=== PATIENT | male | born 1945 | race Caucasian/White ===

== ENCOUNTER 2017-09-06 20:25 | Emergency (ER) | payer MEDICARE, OTHER ==
--- NOTE | 2017-09-06 20:33 | PDOC ---
Rapid Medical Evaluation Time Seen by Provider: 09/06/17 20:31 Medical Evaluation: Allergies Allergy/AdvReac Type Severity Reaction Status Date / Time Penicillins Allergy Unknown Verified 11/20/15 16:55 09/06/17 20:31 I have performed a brief in-person evaluation of this patient. The patient presents with a chief complaint of: urinary retention, last urinated at 1 pm, hx prostate ca I have ordered the following: hernandez, UA, UCx, CBC, CMP The patient will proceed to the ED for further evaluation.
[2017-09-06 20:34] VITALS: PULSE 100; TEMP 97.6; BMI 25.3
[2017-09-06 21:25] LABS: BASOPHIL 0.3 % (0-2.0); EOSINOPHIL 1.9 % (0-4.5); MCH 28.7 pg (25.7-33.7); MCHC 33.2 g/dl (32.0-35.9); MEAN CELL VOLUME 86.6 fl (80-96); NEUTROPHILS 76.8 % (42.8-82.8); PLATELET COUNT 296 K/MM3 (134-434); RDW 14.8 % (11.9-15.9); WHITE BLOOD COUNT 16.2 K/mm3 (4.0-10.0)
--- NOTE | 2017-09-06 21:40 | PDOC ---
History of Present Illness - General History Source: Patient Exam Limitations: No Limitations - History of Present Illness Initial Comments: 09/06/17 22:31 The patient is a 71 year old male, with a significant past medical history of Prostate CA, HTN, HLD who presents to the emergency department with urinary retention since 1pm today. Patient has not been able to void urine and complained of suprapubic pain. Upon evaluation, patient has voided urine through hernandez catheter and is resting comfortably. He denies chest pain, headache or dizziness. He denies fever, chills, nausea, vomit, diarrhea or constipation. He denies dysuria, frequency, urgency or hematuria. Patient denies sick contacts or recent travel. Allergies: NKA Past surgical history: None Social history:None PCP: Dr. Huang <Ynes Rutledge - Last Filed: 09/06/17 22:31> <José Antonio Simon - Last Filed: 09/06/17 23:16> - General Chief Complaint: Urinary Problem Stated Complaint: TROUBLE URINATING Time Seen by Provider: 09/06/17 20:31 Past History <Ynes Rutledge - Last Filed: 09/06/17 22:31> - Past Medical History Anemia: No Asthma: No Cancer: Yes (prostate) Cardiac Disorders: No CVA: No COPD: No CHF: No DVT: No Dementia: No Diabetes: No GI Disorders: No Disorders: No HTN: Yes Hypercholesterolemia: Yes Liver Disease: No Seizures: No Thyroid Disease: No - Surgical History Abdominal Surgery: No Appendectomy: No Cardiac Surgery: No Cholecystectomy: No Lung Surgery: No Neurologic Surgery: No Orthopedic Surgery: No - Suicide/Smoking/Psychosocial Hx Smoking Status: No Smoking History: Never smoked Have you smoked in the past 12 months: No Number of Cigarettes Smoked Daily: 0 Information on smoking cessation initiated: No Hx Alcohol Use: No Drug/Substance Use Hx: No Substance Use Type: None Hx Substance Use Treatment: No <José Antonio Simon - Last Filed: 09/06/17 23:16> - Past Medical History Allergies/Adverse Reactions: Allergies Allergy/AdvReac Type Severity Reaction Status Date / Time Penicillins Allergy Unknown Verified 11/20/15 16:55 Home Medications: Ambulatory Orders No Home Medications 0 dose .ROUTE UTDICT 10/05/12 Sulfamethoxazole/Trimethoprim [Bactrim Ds -] 1 tab PO BID #10 tablet 09/06/17 Abd/GI Specific PMHX - Complaint Specific PMHX GERD: No GI Ulcer Disease: No <José Antonio Simon - Last Filed: 09/06/17 23:16> Review of Systems - Review of Systems Able to Perform ROS?: Yes Comments:: 09/06/17 22:31 CONSTITUTIONAL: No fever, no chills, no fatigue EYES: No visual changes ENT: No ear pain, no sore throat CARDIOVASCULAR: No chest pain, no palpitations RESPIRATORY: No cough, no SOB GI: No abdominal pain, no nausea, no vomiting, no constipation, no diarrhea GENITOURINARY: No dysuria, no frequency, no hematuria. +urinary retention. MUSKULOSKELETAL: No back pain, no joint pain, no myalgias SKIN: No rash NEURO: No headache <Ynes Rutledge - Last Filed: 09/06/17 22:31> *Physical Exam - Vital Signs Last Vital Signs Temp Pulse Resp BP Pulse Ox 97.6 F 100 H 24 193/92 97 09/06/17 20:31 09/06/17 20:31 09/06/17 20:31 09/06/17 20:31 09/06/17 20:31 - Physical Exam Comments: 09/06/17 22:31 CONSTITUTIONAL: Well-appearing; well-nourished; in no apparent distress HEAD: Normocephalic; atraumatic EYES: PERRL; EOM intact ENMT: External appears normal; normal oropharynx NECK: Supple; nontender; no cervical lymphadenopathy CARD: Normal S1, S2; no murmurs, rubs, or gallops RESP: Normal chest excursion with respiration; breath sounds clear and equal bilaterally; no wheezes, rhonchi, or rales ABD: Soft, non-distended; non-tender; no palpable organomegaly, no palpable hernias EXT: Normal ROM in all four extremities; non-tender to palpation; distal pulses intact SKIN: Warm, dry, no rash NEURO: No focal neurological deficiencies. <Ynes Rutledge - Last Filed: 09/06/17 22:31> - Vital Signs Last Vital Signs Temp Pulse Resp BP Pulse Ox 97.6 F 100 H 24 193/92 97 09/06/17 20:31 09/06/17 20:31 09/06/17 20:31 09/06/17 20:31 09/06/17 20:31 <José Antonio Simon - Last Filed: 09/06/17 23:16> ED Treatment Course - LABORATORY CBC & Chemistry Diagram: 09/06/17 21:00 09/06/17 21:00 - ADDITIONAL ORDERS Additional order review: 09/06/17 21:00 RBC 4.91 D MCV 86.6 MCHC 33.2 RDW 14.8 MPV 9.0 Neutrophils % 76.8 Lymphocytes % 15.2 Monocytes % 5.8 Eosinophils % 1.9 Basophils % 0.3 <Ynes Rutledge - Last Filed: 09/06/17 22:31> - LABORATORY CBC & Chemistry Diagram: 09/06/17 21:00 09/06/17 21:00 - ADDITIONAL ORDERS Additional order review: 09/06/17 21:00 RBC 4.91 D MCV 86.6 MCHC 33.2 RDW 14.8 MPV 9.0 Neutrophils % 76.8 Lymphocytes % 15.2 Monocytes % 5.8 Eosinophils % 1.9 Basophils % 0.3 <José Antonio Simon - Last Filed: 09/06/17 23:16> Medical Decision Making - Medical Decision Making 09/06/17 21:52 Dr. Casper Ruano paged via phone answering service. Awaiting call back. 09/06/17 22:00 Flex Ruano returned the page and the patients case was discussed. 09/06/17 22:20 Patient voided urine spontaneously. <Ynes Rutledge - Last Filed: 09/06/17 22:31> - Medical Decision Making 09/06/17 23:12 71-year-old male with multiple comorbidities, history prostate CA, history urinary incontinence, status post male sling placement by urology presents to the ER with suprapubic abdominal discomfort and urinary retention for a period of 6-7 hours prior to arrival. Upon arrival, Hernandez catheter placement was attempted, small amount urine was obtained with patient voiding spontaneously thereafter with complete resolution of his discomfort. Serial abdominal exams reveal no evidence of bladder distention or CVA tenderness. CBC reveals leukocytosis of 16. Patient is afebrile. I discussed the case with Dr. Nick tran of urology. Will administer Bactrim and will discharge with by mouth Bactrim with prompt follow-up in the a.m. <José Antonio Simon - Last Filed: 09/06/17 23:16> *DC/Admit/Observation/Transfer - Attestations Scribe Attestion: Documentation prepared by Ynes Rutledge, acting as medical accountant for José Antonio Simon MD 09/06/17 22:26 <Ynes Rutledge - Last Filed: 09/06/17 22:31> - Attestations Physician Attestion: 09/06/17 23:12 The documentation was prepared by the scribe under my direct supervision. I have reviewed the documentation which correctly represents the findings, medical decision-making and critical action taken by me. <José Antonio Simon - Last Filed: 09/06/17 23:16> Diagnosis at time of Disposition: Urinary retention - Discharge Dispostion Disposition: HOME Condition at time of disposition: Stable - Referrals Referrals: Mel Huang MD [Primary Care Provider] - Casper Ruano MD [Staff Physician] - - Patient Instructions Printed Discharge Instructions: DI for Urinary Retention in Men
[2017-09-06 21:53] LABS: ALBUMIN 4.2 g/dl (3.4-5.0); ANION GAP 8 (8-16); BILIRUBIN,TOTAL 0.3 mg/dL (0.2-1.0); CALCIUM 8.3 mg/dL (8.5-10.1); CO2 25 mmol/L (21-32); CREATININE 0.8 mg/dL (0.7-1.3); GLUCOSE,RANDOM 129 mg/dL (74-106); MAGNESIUM 2.1 mg/dL (1.8-2.4); SGOT/AST 11 U/L (15-37); SGPT/ALT 19 U/L (12-78); TOT PROT 7.3 g/dl (6.4-8.2)
[2017-09-06 21:54] LABS: ALK PHOS 92 U/L (45-117)
[2017-09-06 22:00] LABS: CPK 117 IU/L (39-308); TROPONIN I < 0.02 ng/ml (0.00-0.05)
[2017-09-06] MEDS ORDERED: SULFAMETHOXAZOLE/TRIMETHOPRIM 800MG/160MG D.S. TABLET PO ONE (22:20)
[2017-09-06] MEDS ORDERED: SULFAMETHOXAZOLE/TRIMETHOPRIM 800MG/160MG D.S. TABLET ONE (22:29)
[2017-09-06 23:44] VITALS: BP 134/54
--- NOTE | 2017-09-07 11:09 | EKG ---
Test Reason : Blood Pressure : / mmHG Vent. Rate : 094 BPM Atrial Rate : 094 BPM P-R Int : 132 ms QRS Dur : 082 ms QT Int : 338 ms P-R-T Axes : 072 059 062 degrees QTc Int : 422 ms NORMAL SINUS RHYTHM NORMAL ECG WHEN COMPARED WITH ECG OF 18-MAY-2013 18:24, ST NO LONGER ELEVATED IN INFERIOR LEADS Confirmed by JP ADAME MD ([id number]) on 09/07/2017 11:09:01 AM Referred By: Confirmed By:JP ADAME MD
== END 2017-09-06 23:30 | disposition home or self-care (01) ==
LOC: JER 20:25
PROC: 0T9B70Z Drainage of Bladder with Drainage Device, Via Natural or Artificial Opening (ICD-10-PCS; principal; 2017-09-06)
DX: R33.9 Retention of urine, unspecified (principal); Z85.46 Personal history of malignant neoplasm of prostate; R32 Unspecified urinary incontinence
CPT/HCPCS: 36415; 51702; 80053; 82550; 83735; 84484; 85025; 87086; 93005; 93010; 99281-25

== ENCOUNTER 2017-09-07 14:27 | Inpatient (IN) | payer MEDICARE ==
--- NOTE | 2017-09-07 14:30 | PDOC ---
Rapid Medical Evaluation Time Seen by Provider: 09/07/17 14:29 Medical Evaluation: Allergies Allergy/AdvReac Type Severity Reaction Status Date / Time No Known Allergies Allergy Verified 04/03/17 01:49 09/07/17 14:29 I have performed a brief in-person evaluation of this patient. The patient presents with a chief complaint of: Urinary retention Pertinent physical exam findings: PULM: CTAB I have ordered the following: CBCD, BMP, T&S, PT/INR, UA, urine cx The patient will proceed to the ED for further evaluation. 09/07/17 14:31 Discharge Disposition - Diagnosis Urinary retention - Referrals Referrals: Denton Ruano MD [Primary Care Provider] - - Patient Instructions - Post Discharge Activity
[2017-09-07 15:30] LABS: BASOPHIL 0.6 % (0-2.0); EOSINOPHIL 2.9 % (0-4.5); MCHC 33.4 g/dl (32.0-35.9); MEAN CELL VOLUME 86.9 fl (80-96); MEAN PLT VOLUME 9.1 fl (7.5-11.1); NEUTROPHILS 57.6 % (42.8-82.8); PLATELET COUNT 260 K/MM3 (134-434); RDW 14.8 % (11.9-15.9)
[2017-09-07 15:33] LABS: ANION GAP 7 (8-16); CALCIUM 8.5 mg/dL (8.5-10.1); CO2 28 mmol/L (21-32); CREATININE 0.7 mg/dL (0.7-1.3); GLUCOSE,RANDOM 98 mg/dL (74-106)
[2017-09-07 15:56] LABS: INR 1.08 (0.82-1.09); PROTHROMBIN TIME (PATIENT) 12.2 SEC (9.98-11.88)
[2017-09-07 16:01] LABS: URINE APPEARANCE CLOUDY; URINE BILIRUBIN NEGATIVE (NEGATIVE); URINE BLOOD 3+ (NEGATIVE); URINE COLOR AMBER; URINE GLUCOSE (UA) NEGATIVE (NEGATIVE); URINE KETONE TRACE (NEGATIVE); URINE NITRITE NEGATIVE (NEGATIVE); URINE UROBILINOGEN NEGATIVE mg/dL (0.2-1.0)
--- NOTE | 2017-09-07 16:03 | PDOC ---
History of Present Illness - General Chief Complaint: Urinary Problem Stated Complaint: SENT BY PCP Time Seen by Provider: 09/07/17 14:29 History Source: Patient Exam Limitations: No Limitations - History of Present Illness Initial Comments: This is a 71 YOM with h/o prostate cancer with seed placement and radiation in 2003 with subsequent struggles with urinary retention and urethral obstruction and multiple TURP procedures. He presents from [facility] clinic where they could not place a Bautista catheter. He was also seen yesterday night here in the ED for urinary retention and lower abdominal pain, and at that time they were able to place a straight cath. He has had no burning, blood, or strange smells on urination, and no fever, chills, nausea, vomiting, diarrhea, SOB, chest pain , back pain, headache, dizziness, or other symptoms lately. His PMD is Thien Huang. Past History - Past Medical History Allergies/Adverse Reactions: Allergies Allergy/AdvReac Type Severity Reaction Status Date / Time No Known Allergies Allergy Verified 09/07/17 14:29 Home Medications: Ambulatory Orders Ciprofloxacin [Cipro (Restricted To Id)] 500 mg PO DAILY #20 tablet 04/03/17 Mirabegron [Myrbetriq] 50 mg PO DAILY 04/03/17 Anemia: No Asthma: No Cancer: Yes (PROSTATE) Cardiac Disorders: No CVA: No COPD: No CHF: No Dementia: No Diabetes: No GI Disorders: No Disorders: Yes (prostate) HTN: No Hypercholesterolemia: Yes Liver Disease: No Seizures: No Thyroid Disease: No - Suicide/Smoking/Psychosocial Hx Smoking Status: No Smoking History: Never smoked Have you smoked in the past 12 months: No Number of Cigarettes Smoked Daily: 0 Hx Alcohol Use: No Drug/Substance Use Hx: No Substance Use Type: None Hx Substance Use Treatment: No Review of Systems - Review of Systems Constitutional: No: Chills, Fever, Unexplained wgt Loss HEENTM: No: Nose Congestion, Throat Pain Respiratory: No: Cough, Shortness of Breath Cardiac (ROS): No: Chest Pain, Palpitations ABD/GI: No: Constipated, Diarrhea, Nausea, Vomiting : Yes: Other (urinary retention). No: Burning, Dysuria Musculoskeletal: No: Back Pain, Neck Pain Integumentary: No: Bruising, Rash Neurological: No: Headache, Numbness, Tingling, Weakness, Dizziness Endocrine: No: Unexplained Weight Gain, Unexplained Weight Loss *Physical Exam - Vital Signs Last Vital Signs Temp Pulse Resp BP Pulse Ox 97.9 F 71 18 147/75 98 09/07/17 14:29 09/07/17 14:29 09/07/17 14:29 09/07/17 14:29 09/07/17 14:29 - Physical Exam General Appearance: Yes: Nourished, Appropriately Dressed, Other (well appearing older male who is conversive and answering questions appropriately and accompanied by his partner at bedside). No: Apparent Distress HEENT: positive: EOMI, Normal Voice, Hearing Grossly Normal. negative: Scleral Icterus (R), Scleral Icterus (L), Nasal Congestion Neck: positive: Trachea midline, Supple. negative: Tender, Rigid Respiratory/Chest: positive: Lungs Clear, Normal Breath Sounds. negative: Respiratory Distress, Labored Respiration, Crackles, Rhonchi, Stridor, Wheezing Cardiovascular: positive: Regular Rhythm, Regular Rate. negative: Murmur Gastrointestinal/Abdominal: positive: Normal Bowel Sounds, Soft. negative: Tender, Organomegaly, Pulsatile Mass, Guarding Musculoskeletal: positive: Normal Inspection. negative: Decreased Range of Motion, Vertebral Tenderness Extremity: positive: Normal Capillary Refill, Normal Inspection, Normal Range of Motion. negative: Tender, Cyanosis Integumentary: positive: Normal Color, Dry, Warm. 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, Fully Oriented, Alert, Normal Mood/ Affect, Normal Response, Motor Strength 5/5 ED Treatment Course - LABORATORY CBC & Chemistry Diagram: 09/07/17 14:50 09/07/17 14:55 - ADDITIONAL ORDERS Additional order review: Laboratory Results 09/07/17 14:55 Sodium 141 Potassium 4.8 D Chloride 106 Carbon Dioxide 28 Anion Gap 7 L BUN 14 Creatinine 0.7 D Random Glucose 98 D Calcium 8.5 09/07/17 14:50 RBC 4.86 MCV 86.9 MCHC 33.4 RDW 14.8 MPV 9.1 Neutrophils % 57.6 D Lymphocytes % 30.6 D Monocytes % 8.3 D Eosinophils % 2.9 D Basophils % 0.6 Medical Decision Making - Medical Decision Making Ordered is CXR portable. 09/07/17 15:[address] Huang as PMD, and Dr. Casper Ruano for urology. Spoke with Dr. Valenzuela who is wagon driver for Dr. Huang and who kindly will admit the patient. The admission is ordered for inpatient med/surg, dx urinary retention, with Casper Ruano consulting. *DC/Admit/Observation/Transfer Diagnosis at time of Disposition: Urinary retention - Discharge Dispostion Disposition: HOME Condition at time of disposition: Guarded Admit: Yes - Referrals Referrals: Mel Huang MD [Staff Physician] - - Patient Instructions - Post Discharge Activity
[2017-09-07 16:13] LABS: URINE PROTEIN 1+ (NEGATIVE)
[2017-09-07 16:19] LABS: URINE BACTERIA FEW /hpf (NONE SEEN); URINE RBC 4962; URINE WBC 140
[2017-09-07] MEDS ORDERED: ACETAMINOPHEN 325 MG TABLET (FP) PO PRN (17:10)
--- NOTE | 2017-09-07 17:22 | PDOC ---
Attending Attestation - Resident Resident Name: ChildressMakenzie - ED Attending Attestation I have performed the following: I have examined & evaluated the patient, The case was reviewed & discussed with the resident, I agree w/resident's findings & plan, Exceptions are as noted - HPI HPI: 09/07/17 17:20 71 year old male with past medical history of prostate ca with radiation seeds sent in by Dr. Casper Ruano for admission for the OR tomorrow. The patient was recently here in the ER for urinary retention. The patient had a cath performed and joaquín out approx 600cc. Today, at the urologist's office, noted that he was undergoing cystoscopy but unable to successfully dilate. Given the circumstances , the patient was sent to the ER for admission. No fevers, chills, or abdominal pain. - Physicial Exam PE: 09/07/17 17:21 GENERAL: NAD, AAOx3 ABD: soft, nd, nt - Medical Decision Making 09/07/17 17:21 Vital Signs Temp Pulse Resp BP Pulse Ox 97.9 F 71 18 147/75 98 09/07/17 14:29 09/07/17 14:29 09/07/17 14:29 09/07/17 14:29 09/07/17 14:29 Will admit the patient for cystoscopy under general anesthesia. Pt's PMD is Mel Huang, urologist is DR. Flex Ruano. Pre-op labs NPO after midnight ECG chest xray Admit
[2017-09-07] MEDS: D5-1/2NS+20 MEQ KCL - 20 MEQ/1,000 ML INFUS.BAG IV SCH (17:51)
[2017-09-07] MEDS: cefTRIAXone 1 GM/50 ML BAG (PRE-DOCKED) IVPB SCH (18:06)
[2017-09-07 18:47] LABS: URINE LEUK ESTERASE TRACE (NEGATIVE)
[2017-09-07 19:45] VITALS: BMI 24.3
[2017-09-07] MEDS: HEPARIN NA (PORCINE) 5,000 UNITS/ML 1ML VIAL SQ SCH (21:21)
[2017-09-08] MEDS: D5-1/2NS+20 MEQ KCL - 20 MEQ/1,000 ML INFUS.BAG IV SCH ×2 (05:53→22:17)
[2017-09-08 08:00] LABS: BASOPHIL 0.9 % (0-2.0); EOSINOPHIL 3.2 % (0-4.5); MCH 28.4 pg (25.7-33.7); MCHC 32.2 g/dl (32.0-35.9); MEAN CELL VOLUME 88.4 fl (80-96); NEUTROPHILS 55.1 % (42.8-82.8); PLATELET COUNT 225 K/MM3 (134-434); WHITE BLOOD COUNT 6.9 K/mm3 (4.0-10.0)
[2017-09-08 08:24] LABS: ALBUMIN 3.4 g/dl (3.4-5.0); ALK PHOS 78 U/L (45-117); ANION GAP 9 (8-16); BILIRUBIN,TOTAL 0.6 mg/dL (0.2-1.0); CALCIUM 8.6 mg/dL (8.5-10.1); CO2 24 mmol/L (21-32); CREATININE 0.8 mg/dL (0.7-1.3); GLUCOSE,RANDOM 95 mg/dL (74-106); SGOT/AST 14 U/L (15-37); SGPT/ALT 18 U/L (12-78); TOT PROT 6.3 g/dl (6.4-8.2)
[2017-09-08] MEDS: HEPARIN NA (PORCINE) 5,000 UNITS/ML 1ML VIAL SQ SCH (09:59)
[2017-09-08] MEDS ORDERED: PANTOPRAZOLE 40 MG TABLET (FP) PO SCH (10:00)
--- NOTE | 2017-09-08 10:44 | CONS ---
DATE OF CONSULTATION: DATE OF DICTATION: 09/08/2017 HISTORY OF PRESENT ILLNESS: Patient is a 71-year-old male admitted via the emergency room in acute urinary retention. Patient is well known to me. Was seen in my office earlier. Attempts at cystoscopy were unsuccessful due to bladder neck contraction. The patient is status post radiation seed implantation for prostate cancer 8 years earlier. The patient was found to have a distended bladder with dribbling. His temperature was 99.7, blood pressure 147/ . Laboratory data on admission revealed a white count of 9000, hemoglobin 14.1, hematocrit 42.3, his platelets were 260. PT was 12.2 and INR 1.08. BUN was 14 and creatinine 0.7. Random glucose is 98. A urinalysis revealed 3+ blood, negative nitrite. A chest x-ray on the patient revealed the right lower lateral chest wall and lateral aspect of the right lateral costovertebral angle were not visualized. The rest of the exam was normal. 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 PLAN: Cystoscopy and vaporization of bladder neck. This was explained to patient and he agrees. Delonte [id number]
[2017-09-08] MEDS: cefTRIAXone 1 GM/50 ML BAG (PRE-DOCKED) IVPB SCH (10:47)
[2017-09-08] MEDS ORDERED: CEFTRIAXONE 1 GM/50 ML PREMIX IVPB SCH (11:00)
--- NOTE | 2017-09-08 14:05 | CON.CARD ---
Consult Consult Specialty:: Cardiology Reason for Consultation:: Preoperative evaluation - History of Present Illness Chief Complaint: Urinary retention History of Present Illness: This is a 71 year old male with a PMH of prostate CA. He is S/P seed placement and radiation He has has multiple prostate procedures in the past. He presents now with urinary retention and inability to pass a Bautista catheter. He has no significant cardiac history and has no cardiac symptoms. He specifically denies chest pain, palpitations, and SOB. EKG NSR with no acute changes CXR unremarkable - Alcohol/Substance Use Hx Alcohol Use: No - Smoking History Smoking history: Never smoked Have you smoked in the past 12 months: No Aproximately how many cigarettes per day: 0 Home Medications - Allergies Allergies/Adverse Reactions: Allergies Allergy/AdvReac Type Severity Reaction Status Date / Time Penicillins Allergy Unknown Verified 11/20/15 16:55 - Home Medications Home Medications: Ambulatory Orders No Home Medications 0 dose .ROUTE UTDICT 10/05/12 Sulfamethoxazole/Trimethoprim [Bactrim Ds -] 1 tab PO BID #10 tablet 09/06/17 Atorvastatin Ca [Lipitor] 20 mg NR DAILY 09/07/17 Omeprazole 20 mg PO DAILY 09/07/17 Review of Systems Unable to obtain ROS, reason: As per HPI Vital Signs: Vital Signs Temperature 98.0 F 09/08/17 09:00 Pulse Rate 69 09/08/17 09:00 Respiratory Rate 16 09/08/17 09:00 Blood Pressure 139/64 09/08/17 09:00 O2 Sat by Pulse Oximetry (%) 98 09/08/17 10:00 Constitutional: Yes: No Distress Neck: Yes: WNL Respiratory: Yes: CTA Bilaterally Gastrointestinal: Yes: Soft Cardiovascular: Yes: Regular Rate and Rhythm (NL S1S2, no MRHG.) Extremities: Yes: WNL Edema: No Neurological: Yes: Alert, Oriented (Grossly nonfocal) - Other Data Labs, Other Data: CBC, BMP 09/08/17 07:20 09/08/17 07:20 INR, PTT INR 1.08 (0.82-1.09) 09/07/17 14:50 Assessment/Plan Preoperative Evaluation Based on the EKG, CXR, and my clinical evaluation, there are no cardiac contraindications to surgery. There is no need for preop cardiac testing or preop beta blockers for this patient.
--- NOTE | 2017-09-08 14:37 | HP ---
Admitting History and Physical - Primary Care Physician PCP: Mel Huang I - Admission History of Present Illness: This is a 71 yr old Male with h/o prostate cancer with seed placement and radiation in 2003 with subsequent struggles with urinary retention and urethral obstruction and multiple TURP procedures. He presents from [facility] clinic where they could not place a Bautista catheter. He was also seen yesterday night here in the ED for urinary retention and lower abdominal pain, and at that time they were able to place a straight cath. He has had no burning, blood , or strange smells on urination, and no fever, chills, nausea, vomiting, diarrhea, SOB, chest pain, back pain, headache, dizziness, or other symptoms lately. His PMD is Thien Huang. History Source: Patient, Medical Record - Past Medical History Heme/Onc: Yes: Other (prostate cancer) - Smoking History Smoking history: Never smoked Have you smoked in the past 12 months: No Aproximately how many cigarettes per day: 0 - Alcohol/Substance Use Hx Alcohol Use: No Home Medications - Allergies Allergies/Adverse Reactions: Allergies Allergy/AdvReac Type Severity Reaction Status Date / Time Penicillins Allergy Unknown Verified 11/20/15 16:55 - Home Medications Home Medications: Ambulatory Orders No Home Medications 0 dose .ROUTE UTDICT 10/05/12 Sulfamethoxazole/Trimethoprim [Bactrim Ds -] 1 tab PO BID #10 tablet 09/06/17 Atorvastatin Ca [Lipitor] 20 mg NR DAILY 09/07/17 Omeprazole 20 mg PO DAILY 09/07/17 Review of Systems - Review of Systems Cardiovascular: reports: No Symptoms Respiratory: reports: No Symptoms Gastrointestinal: reports: No Symptoms Physical Examination Vital Signs: Vital Signs Temperature 98.0 F 09/08/17 09:00 Pulse Rate 69 09/08/17 09:00 Respiratory Rate 16 09/08/17 09:00 Blood Pressure 139/64 09/08/17 09:00 O2 Sat by Pulse Oximetry (%) 98 09/08/17 10:00 Constitutional: Yes: Calm, Thin Neck: Yes: Trachea Midline Cardiovascular: Yes: Regular Rate and Rhythm, S1, S2 Respiratory: Yes: CTA Bilaterally Gastrointestinal: Yes: Normal Bowel Sounds, Soft Edema: No Neurological: Yes: Alert, Oriented Labs: CBC, BMP 09/08/17 07:20 09/08/17 07:20 Problem List - Problems (1) Urinary retention Assessment/Plan: NPO and iv fluids cardio saw patient h/o prostate cancer today to get cystoscopy and vaporisation of bladder neck GI and DVT Ppx Code(s): R33.9 - RETENTION OF URINE, UNSPECIFIED
[2017-09-08] MEDS ORDERED: PROPOFOL 20 ML ONE (20:08)
[2017-09-08] MEDS ORDERED: MIDAZOLAM HCL 2 MG/2 ML SINGLE DOSE VIAL ONE (20:08)
[2017-09-08] MEDS ORDERED: ceFAZolin SODIUM 1 GM VIAL IVPB ONE (20:18)
[2017-09-08] MEDS ORDERED: ceFAZolin SODIUM 1 GM VIAL ONE (20:22)
[2017-09-08] MEDS ORDERED: ONDANSETRON 4 MG/2 ML VIAL IVPUSH PRN (20:48)
[2017-09-08] MEDS ORDERED: LACTATED RINGERS SOLUTION 1,000 ML IV SCH (21:00)
[2017-09-08] MEDS ORDERED: ACETAMINOPHEN 325 MG TABLET (FP) PO PRN (21:10)
[2017-09-09 07:03] LABS: BASOPHIL 0.4 % (0-2.0); EOSINOPHIL 2.4 % (0-4.5); MCH 28.8 pg (25.7-33.7); MCHC 32.9 g/dl (32.0-35.9); MEAN CELL VOLUME 87.6 fl (80-96); MEAN PLT VOLUME 8.8 fl (7.5-11.1); NEUTROPHILS 74.5 % (42.8-82.8); PLATELET COUNT 235 K/MM3 (134-434); RDW 14.6 % (11.9-15.9); WHITE BLOOD COUNT 9.6 K/mm3 (4.0-10.0)
[2017-09-09 07:41] LABS: ALBUMIN 3.3 g/dl (3.4-5.0); ALK PHOS 75 U/L (45-117); ANION GAP 9 (8-16); BILIRUBIN,TOTAL 0.4 mg/dL (0.2-1.0); CALCIUM 8.6 mg/dL (8.5-10.1); CO2 25 mmol/L (21-32); CREATININE 0.7 mg/dL (0.7-1.3); GLUCOSE,RANDOM 106 mg/dL (74-106); SGOT/AST 14 U/L (15-37); SGPT/ALT 18 U/L (12-78); TOT PROT 6.1 g/dl (6.4-8.2)
[2017-09-09] MEDS: D5-1/2NS+20 MEQ KCL - 20 MEQ/1,000 ML INFUS.BAG IV SCH (09:09)
[2017-09-09] MEDS ORDERED: CEFTRIAXONE 1 GM/50 ML PREMIX IVPB SCH (10:00)
[2017-09-09] MEDS ORDERED: PANTOPRAZOLE 40 MG TABLET (FP) PO SCH (10:00)
--- NOTE | 2017-09-09 11:11 | DS ---
Physical Examination Vital Signs: Vital Signs Temperature 98.5 F 09/09/17 06:00 Pulse Rate 77 09/09/17 06:00 Respiratory Rate 20 09/09/17 06:00 Blood Pressure 127/88 09/09/17 06:00 O2 Sat by Pulse Oximetry (%) 98 09/08/17 22:00 Findings/Remarks: AWAKE ALERT DISCHARGED PER CRISTHIAN MYERS Constitutional: Yes: Well Nourished Eyes: Yes: WNL HENT: Yes: WNL Neck: Yes: WNL Cardiovascular: Yes: WNL Respiratory: Yes: WNL Gastrointestinal: Yes: WNL Renal/: Yes: Gibbs Present Musculoskeletal: Yes: WNL Extremities: Yes: WNL Edema: No Integumentary: Yes: WNL Wound/Incision: Yes: Clean/Dry Neurological: Yes: WNL ...Motor Strength: WNL Psychiatric: Yes: WNL Labs: CBC, BMP 09/09/17 06:00 09/09/17 06:00 Discharge Summary Reason For Visit: RETENTION OF URINE Current Active Problems Urinary retention (Acute) Procedures: Principal: CYSTOSCOPY Hospital Course: ADMITTED FOR URINARY RETENTION, CYSTOSCOPY DONE, DC WITH GIBBS PER CRISTHIAN, AND F/U OUTPATIENT Condition: Guarded - Instructions Diet, Activity, Other Instructions: LOW SODIUM SEE DR DEB MYERS MondayAug Referrals: Mel Huang MD [Staff Physician] - Disposition: HOME - Home Medications Comprehensive Discharge Medication List: Ambulatory Orders Acetaminophen [Tylenol .Regular Strength -] 650 mg PO Q4H PRN tablet 09/09/17 Atorvastatin Ca [Lipitor] 20 mg NR DAILY #0 tab 09/09/17 Cephalexin [Keflex] 500 mg PO TID #15 capsule 09/09/17 Omeprazole 20 mg PO DAILY #0 cap 09/09/17
--- NOTE | 2017-09-09 11:48 | PN ---
Progress Note (short form) - Note Progress Note: urlogically stable for d/c to d.c with david and to f/u monday at 2 pm
[2017-09-09 12:20] VITALS: BP 114/59; PULSE 83; TEMP 98.6
[2017-09-09] MEDS ORDERED: HEPARIN NA (PORCINE) 5,000 UNITS/ML 1ML VIAL SQ SCH (22:00)
--- NOTE | 2017-09-10 10:41 | OP ---
DATE OF OPERATION: 09/08/2017 PREOPERATIVE DIAGNOSES: 1. Urinary retention. 2. History of prostate cancer. 3. History of radiation seed implantation. OPERATIVE PROCEDURE: Cystourethroscopy and urethral dilation. ANESTHESIA: General. DESCRIPTION OF PROCEDURE: Under the above-stated anesthesia, patient was prepped and draped in the usual sterile manner, placed in the dorsal lithotomy position. A retrograde urethrogram was performed using a bulb syringe and injecting 50 mL of contrast into the urethra. 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 A cystoscope was inserted to the level of the stricture. A small hole was visualized. A Glidewire was passed through the hole. An urethrotome was then inserted, and the stricture was excised at the 12 o'clock position. This was carried on up to the corpora spongiosum. No extravasation or bleeding was noted. The entire stricture was excised. Cystoscopy revealed a wide-open bladder neck. The prostate revealed radiation prostatitis. The bladder revealed a grade 2 trabeculation. No lesions or calculi were seen. Ureteral orifices were within normal limits with efflux of clear urine. No other lesions were seen. The scope was removed. A 20-Wallisian Bautista was inserted. This was connected to a leg bag. The patient tolerated the procedure well. He returned to the recovery room in good condition. Delonte [id number]
== END 2017-09-09 13:27 | disposition home or self-care (01) | DRG 672 ==
LOC: JER 14:27 → MERGE 16:03 → JERBED 16:03 → J5S 19:20
PROVIDERS: ADMIT Family Medicine; ATTEND Family Medicine
PROC: 0TBD8ZZ Excision of Urethra, Via Natural or Artificial Opening Endoscopic (ICD-10-PCS; 2017-09-08)
PROC: 0T7D8ZZ Dilation of Urethra, Via Natural or Artificial Opening Endoscopic (ICD-10-PCS; principal; 2017-09-08 16:30)
DX: N35.8 Other urethral stricture (principal); R33.8 Other retention of urine; E78.00 Pure hypercholesterolemia, unspecified; N41.8 Other inflammatory diseases of prostate; Z85.46 Personal history of malignant neoplasm of prostate
CPT/HCPCS: 36415; 71010-TC; 76775-TC; 80048; 80053; 81003; 81015; 84153; 85025; 85610; 87086; 88108; 94010; 94760; 99283-25; J1644

== ENCOUNTER 2019-01-28 20:56 | Inpatient (IN) | payer OTHER ==
[2019-01-28 21:13] VITALS: BMI 24.4
--- NOTE | 2019-01-28 23:31 | PDOC ---
History of Present Illness - General Chief Complaint: Urinary Problem Stated Complaint: UNABLE TO URINATE Time Seen by Provider: 01/28/19 23:31 History Source: Patient Exam Limitations: No Limitations - History of Present Illness Initial Comments: 01/28/19 23:50 73 year old male with PMH prostate CA s/p seed (RT 2003), urinary retention with multiple TURPs presented to ED for intermittent urinary retention x3 days. Pt stated he often gets clots or scar tissue in the bladder, which will block his urination, and todays symptoms feel similar. Pt reported intermittent suprapubic pain, dysuria. Pt denied fever, chills, nausea, vomiting, diarrhea, body aches, chest pain, shortness of breath. Allergies: PCN Past History - Past Medical History Allergies/Adverse Reactions: Allergies Allergy/AdvReac Type Severity Reaction Status Date / Time Penicillins Allergy Unknown Verified 03/30/18 18:08 Home Medications: Ambulatory Orders Atorvastatin Ca [Lipitor] 20 mg NR DAILY #0 tab 09/09/17 Omeprazole 20 mg PO DAILY #0 cap 09/09/17 Cefuroxime Axetil [Ceftin -] 500 mg PO BID #14 tablet 04/02/18 Anemia: No Asthma: No Cancer: Yes (PROSTATE) Cardiac Disorders: No CVA: No COPD: No CHF: No DVT: No Dementia: No Diabetes: No GI Disorders: No Disorders: Yes (prostate) HTN: No Hypercholesterolemia: Yes Liver Disease: No Seizures: No Thyroid Disease: No - Surgical History Abdominal Surgery: No Appendectomy: No Cardiac Surgery: No Cholecystectomy: No Lung Surgery: No Neurologic Surgery: No Orthopedic Surgery: No - Immunization History Immunization Up to Date: Yes - Suicide/Smoking/Psychosocial Hx Smoking Status: No Smoking History: Unknown if ever smoked Have you smoked in the past 12 months: No Number of Cigarettes Smoked Daily: 0 Hx Alcohol Use: No Drug/Substance Use Hx: No Substance Use Type: None Hx Substance Use Treatment: No Review of Systems - Review of Systems Able to Perform ROS?: Yes Comments:: 01/28/19 23:52 General: denied fever, chills, generalized weakness. HEENT: denied sore throat, rhinorrhea, ear pain. Heart: denied chest pain, palpitations, syncope, diaphoresis. Respiratory: denied shortness of breath, cough, sputum production, hemoptysis. Abdomen: admitted to abdominal pain. denied nausea, vomiting, diarrhea, constipation, blood in stool. : admitted to dysuria, urinary incontinence. denied hematuria, flank pain. Back: denied back pain. Musculoskeletal: denied joint pain, muscle pain, joint swelling. Neurological: denied headache, dizziness, numbness, tingling, weakness. Skin: denied rash, laceration, abrasion. *Physical Exam - Vital Signs Last Vital Signs Temp Pulse Resp BP Pulse Ox 97.7 F 76 20 158/68 99 01/28/19 21:08 01/28/19 21:08 01/28/19 21:08 01/28/19 21:08 01/28/19 21:08 - Physical Exam Comments: 01/28/19 23:53 Constitutional: Well-nourished, Well-developed, appearing stated age. HEENT: head is normocephalic, atraumatic. EOMI. PERRLA. Neck: supple. Full ROM. Heart: regular rhythm. no murmurs, rubs or gallops. Lungs: clear to auscultation bilaterally. no crackles, rhonchi or wheezing. no stridor. Abdomen: soft, nontender. normal bowel sounds. no rebound, guarding, masses. Extremities: peripheral pulses intact. no lower extremity edema. Neurological: CN 2-12 grossly intact. moves all four extremities. Psych: awake, alert, oriented x3. follows commands. answers questions appropriately. ED Treatment Course - LABORATORY CBC & Chemistry Diagram: 01/30/19 07:00 01/30/19 07:00 Medical Decision Making - Medical Decision Making 01/28/19 23:54 73 year old male with above PMH presented to ED for urinary retention, dysuria, suprapubic pain x3 days that feels similar to prior episodes of urinary retention. Urology: Dr. Ruano Initial Vital Signs Temp Pulse Resp BP Pulse Ox 97.7 F 76 20 158/68 99 01/28/19 21:08 01/28/19 21:08 01/28/19 21:08 01/28/19 21:08 01/28/19 21:08 Afebrile. No tachycardia. No tachypnea. Mild hypertension. No hypoxia on room air. Labs ordered: UA/UC Medications ordered: none Imaging ordered: none 01/29/19 00:40 RN attempted to pass Hernandez size 16 and Coude without success. 01/29/19 01:13 Dr. Ruano paged. 01/29/19 01:[address] Ruano about the patient, he stated he will come to place the hernandez at 0600 today. Pt to be admitted to hospitalist service. Pending admission. Labs ordered: CBC, BMP, blood cultures, coags Pt unable to void to provide urine sample. Pt reported 0/10 pain. 01/29/19 01:51 Sign out given to CASINO MANAGER. -Informed of probable UTI, but no antibiotics given at this time. Pending admission to Dr. Valenzuela's service. CBC WBC 6.1 K/mm3 (4.0-10.0) 01/29/19 01:38 RBC 4.18 M/mm3 (4.00-5.60) 01/29/19 01:38 Hgb 12.1 GM/dL (11.7-16.9) 01/29/19 01:38 Hct 36.1 % (35.4-49) 01/29/19 01:38 MCV 86.3 fl (80-96) 01/29/19 01:38 MCH 29.0 pg (25.7-33.7) 01/29/19 01:38 MCHC 33.6 g/dl (32.0-35.9) 01/29/19 01:38 RDW 14.6 % (11.9-15.9) 01/29/19 01:38 Plt Count 224 K/MM3 (134-434) 01/29/19 01:38 MPV 8.9 fl (7.5-11.1) 01/29/19 01:38 Absolute Neuts (auto) 3.6 K/mm3 (1.5-8.0) 01/29/19 01:38 Neutrophils % 59.3 % (42.8-82.8) 01/29/19 01:38 Lymphocytes % 27.3 % (8-40) D 01/29/19 01:38 Monocytes % 8.8 % (3.8-10.2) 01/29/19 01:38 Eosinophils % 3.3 % (0-4.5) D 01/29/19 01:38 Basophils % 1.3 % (0-2.0) D 01/29/19 01:38 Nucleated RBC % 0 % (0-0) 01/29/19 01:38 No leukocytosis. No anemia. CMP Sodium 136 mmol/L (136-145) 01/30/19 07:00 Potassium 3.8 mmol/L (3.5-5.1) 01/30/19 07:00 Chloride 103 mmol/L (98-107) 01/30/19 07:00 Carbon Dioxide 26 mmol/L (21-32) 01/30/19 07:00 Anion Gap 6 MMOL/L (8-16) L 01/30/19 07:00 BUN 22 mg/dL (7-18) H 01/30/19 07:00 Creatinine 1.0 mg/dL (0.55-1.3) 01/30/19 07:00 Creat Clearance w eGFR 72.85 (>60) 01/30/19 07:00 Random Glucose 141 mg/dL (74-106) H 01/30/19 07:00 Calcium 7.4 mg/dL (8.5-10.1) L 01/30/19 07:00 No AMADO. Pt has obstructive uropathy without AMADO, unable to pass hernandez in ED, urology recs admission for evaluation and cystoscopy if they are unable to pass the hernandez. *DC/Admit/Observation/Transfer Diagnosis at time of Disposition: Urinary retention - Discharge Dispostion Condition at time of disposition: Stable Decision to Admit order: Yes - Referrals - Patient Instructions - Post Discharge Activity
[2019-01-29 01:48] LABS: BASO % 1.3 % (0-2.0); EOS % 3.3 % (0-4.5); HEMATOCRIT 36.1 % (35.4-49); HEMOGLOBIN 12.1 GM/dL (11.7-16.9); LYMPH % 27.3 % (8-40); MCHC 33.6 g/dl (32.0-35.9); MEAN CELL VOLUME 86.3 fl (80-96); MEAN PLT VOLUME 8.9 fl (7.5-11.1); MONO % 8.8 % (3.8-10.2); NEUT % 59.3 % (42.8-82.8); PLATELET COUNT 224 K/MM3 (134-434); RBC 4.18 M/mm3 (4.00-5.60); RDW 14.6 % (11.9-15.9); WHITE BLOOD COUNT 6.1 K/mm3 (4.0-10.0)
--- NOTE | 2019-01-29 01:49 | PDOC ---
Attending Attestation - HPI HPI: 01/29/19 01:50 The patient is a 73 year old male, with a significant past medical history of prostate cancer (s/p seed), who presents to the emergency department with, decreased urinary output at night with associated dysuria and intermittent suprapubic discomfort. He endorses his pain to be similar to prior episodes. He denies any recent fevers, chills, headache or dizziness. He denies any recent nausea, vomit, diarrhea or constipation. He denies any recent chest pain or shortness of breath. Allergies: Penicillins. Primary Care Physician: Dr. Huang Urologist: Dr. Familia Ruano - Physicial Exam PE: 01/29/19 01:50 GENERAL: Well-appearing, well-nourished. No apparent distress. HEENT: Normocephalic, atraumatic. PERRL, EOM intact. CARDIOVASCULAR: Normal S1, S2. Regular rate and rhythm. PULMONARY: Clear to auscultation bilaterally. ABDOMEN: Flat. Soft, non-distended, non-tender. EXTREMITIES: No pitting edema. Normal ROM in all four extremities. No gross deformities. EXTERNAL : No significant blood at meatus. SKIN: Warm, dry. No rash NEUROLOGICAL: No focal neurological deficits. <Amalia Millan - Last Filed: 01/29/19 01:50> - Resident Resident Name: Nicole Mathews - ED Attending Attestation I have performed the following: I have examined & evaluated the patient, The case was reviewed & discussed with the resident, I agree w/resident's findings & plan, Exceptions are as noted - Medical Decision Making 01/29/19 02:06 Pt has h/o prostate cancer and recurrent urinary retention unable to pass hernandez and Dr Casper Ruano will see pt in the morning pt admitted <Ksenia Quiles - Last Filed: 01/29/19 02:09> Attestations - Attestations 01/29/19 01:50 Documentation prepared by Amalia Millan, acting as medical care manager for Ksenia Quiles MD. <Amalia Millan - Last Filed: 01/29/19 01:50>
[2019-01-29 02:02] LABS: INR 1.26 (0.83-1.09); PROTHROMBIN TIME (PATIENT) 14.9 SEC (9.7-13.0)
[2019-01-29 02:05] LABS: ACTIVATED PTT 33.9 SECONDS (25.2-36.5)
[2019-01-29 02:08] LABS: ANION GAP 4 MMOL/L (8-16); BLOOD UREA NITROGEN 13 mg/dL (7-18); CALCIUM 8.3 mg/dL (8.5-10.1); CHLORIDE 106 mmol/L (98-107); CO2 28 mmol/L (21-32); CREATININE 0.6 mg/dL (0.55-1.3); GLUCOSE,RANDOM 92 mg/dL (74-106); POTASSIUM 3.8 mmol/L (3.5-5.1); SODIUM 137 mmol/L (136-145)
--- NOTE | 2019-01-29 03:31 | HP ---
CHIEF COMPLAINT: intermittent urinary retention PCP:Dr. Valenzuela HISTORY OF PRESENT ILLNESS: This is a 73 year old male with past medical history significant for prostate cancer s/p seed and radiation therapy in 2003 and urinary retention with multiple TURPs and hyperlipidemia who presented to ER for symptoms of intermittent urinary retention x 3 days. Pt stated he often gets clots or scar tissue in the bladder which will block his urination and todays symptoms were similar. Pt reported intermittent suprapubic pain and dysuria. Pt denied fever, chills, nausea, vomiting, chest pain or shortness of breath. In the ER nursing staff attempted to pass a hernandez to obtain urine specimen however was unsuccessful. He is being admitted for further medical management and Urology evaluation. Labs notable for a normal creatinine, blood pressure is slightly elevated. Allergies: PCN Recent Travel:Denies PAST MEDICAL HISTORY: prostate cancer urinary retention hyperlipidemia PAST SURGICAL HISTORY: postate cancer s/p seed and radiation therapy in 2003 urinary retention with multiple TURPs Social History: Smoking:denies Alcohol:denies Drugs: denies Family History: noncontributory Allergies Penicillins Allergy (Unknown, Verified 03/30/18 18:08) HOME MEDICATIONS: Home Medications Medication Instructions Recorded Atorvastatin Ca [Lipitor] 20 mg NR DAILY #0 tab 09/09/17 Omeprazole 20 mg PO DAILY #0 cap 09/09/17 Cefuroxime Axetil [Ceftin -] 500 mg PO BID #14 tablet 04/02/18 REVIEW OF SYSTEMS CONSTITUTIONAL: Absent: fever, chills, diaphoresis, generalized weakness, malaise, loss of appetite, weight change HEENT: Absent: rhinorrhea, nasal congestion, throat pain, throat swelling, difficulty swallowing, mouth swelling, ear pain, eye pain, visual changes CARDIOVASCULAR: Absent: chest pain, syncope, palpitations, irregular heart rate, lightheadedness , peripheral edema RESPIRATORY: Absent: cough, shortness of breath, dyspnea with exertion, orthopnea, wheezing, stridor, hemoptysis GASTROINTESTINAL: Absent: abdominal pain, abdominal distension, nausea, vomiting, diarrhea, constipation, melena, hematochezia GENITOURINARY: Absent: dysuria, frequency, urgency, hesitancy, hematuria, flank pain, genital pain, suprapubic pain MUSCULOSKELETAL: Absent: myalgia, arthralgia, joint swelling, back pain, neck pain SKIN: Absent: rash, itching, pallor HEMATOLOGIC/IMMUNOLOGIC: Absent: easy bleeding, easy bruising, lymphadenopathy, frequent infections ENDOCRINE: Absent: unexplained weight gain, unexplained weight loss, heat intolerance, cold intolerance NEUROLOGIC: Absent: headache, focal weakness or paresthesias, dizziness, unsteady gait, seizure, mental status changes, bladder or bowel incontinence PSYCHIATRIC: Absent: anxiety, depression, suicidal or homicidal ideation, hallucinations. PHYSICAL EXAMINATION Vital Signs - 24 hr 01/28/19 21:08 Temperature 97.7 F Pulse Rate 76 Respiratory 20 Rate Blood Pressure 158/68 O2 Sat by Pulse 99 Oximetry (%) GENERAL: awake, alert, and fully oriented HEAD: normal EYES: pupils equal, round and reactive to light EARS, NOSE, THROAT: ears normal, nares patent NECK: normal range of motion LUNGS: breath sounds equal clear to auscultation bilaterally no wheezes and no crackles no use of accessory muscle use HEART: regular rate and rhythm normal S1 and S2 without murmur ABDOMEN: soft nontender on light palpation not distended normoactive bowel sounds MUSCULOSKELETAL: normal range of motion at all joints UPPER EXTREMITIES: 2+ pulses LOWER EXTREMITIES: 2+ pulses, warm, well-perfused no pitting edema NEUROLOGICAL: no neuro focal deficits PSYCHIATRIC: cooperative appropriate mood SKIN: warm dry normal turgor no rashes or lesions Laboratory Results - last 24 hr 01/29/19 01/29/19 01/29/19 01:38 01:38 01:38 WBC 6.1 RBC 4.18 Hgb 12.1 Hct 36.1 MCV 86.3 MCH 29.0 MCHC 33.6 RDW 14.6 Plt Count 224 MPV 8.9 Absolute Neuts (auto) 3.6 Neutrophils % 59.3 Lymphocytes % 27.3 D Monocytes % 8.8 Eosinophils % 3.3 D Basophils % 1.3 D Nucleated RBC % 0 PT with INR 14.90 H INR 1.26 H PTT (Actin FS) 33.9 Sodium 137 Potassium 3.8 Chloride 106 Carbon Dioxide 28 Anion Gap 4 L BUN 13 Creatinine 0.6 Creat Clearance w eGFR 131.35 Random Glucose 92 Calcium 8.3 L ASSESSMENT/PLAN: 73 year old male with past medical history significant for prostate cancer s/p seed and radiation therapy in 2003 and urinary retention with multiple TURPs and hyperlipidemia who presented to ER for symptoms of intermittent urinary retention x 3 days. Urinary Retention Unsuccessful attempt to pass hernandez. Urinalysis not obtained to R/O UTI, Afebrile , WBC normal, blood cultures are pending. Creatinine normal, BP slightly elevated. Check bladder scan. Urology consulted-Dr. Ruano will see patient in am. Hyperlipidemia Continue statin therapy Visit type - Emergency Visit Emergency Visit: Yes ED Registration Date: 01/29/19 Care time: The patient presented to the Emergency Department on the above date and was hospitalized for further evaluation of their emergent condition. - New Patient This patient is new to me today: Yes Date on this admission: 01/29/19 - Critical Care Critical Care patient: No
[2019-01-29 04:24] LABS: EPI CELLS 0.5 /HPF (0-5); PH,URINE 7.5 (5.0-8.0); URINE APPEARANCE CLOUDY; URINE BACTERIA 5571.2 /hpf (NEGATIVE); URINE BILIRUBIN NEGATIVE (NEGATIVE); URINE CASTS 20 /hpf (0-8); URINE COLOR YELLOW; URINE GLUCOSE (UA) NEGATIVE (NEGATIVE); URINE KETONE TRACE (NEGATIVE); URINE LEUK ESTERASE 2+ (NEGATIVE); URINE NITRITE POSITIVE (NEGATIVE); URINE PROTEIN TRACE (NEGATIVE); URINE RBC 10 /hpf (0-4); URINE WBC 39 /hpf (0-5)
[2019-01-29 07:19] LABS: HEMATOCRIT 36.4 % (35.4-49); HEMOGLOBIN 12.1 GM/dL (11.7-16.9); MCH 28.8 pg (25.7-33.7); MCHC 33.3 g/dl (32.0-35.9); MEAN CELL VOLUME 86.5 fl (80-96); MEAN PLT VOLUME 9.1 fl (7.5-11.1); PLATELET COUNT 219 K/MM3 (134-434); WHITE BLOOD COUNT 6.1 K/mm3 (4.0-10.0)
[2019-01-29 07:42] LABS: ANION GAP 7 MMOL/L (8-16); BLOOD UREA NITROGEN 12 mg/dL (7-18); CALCIUM 8.2 mg/dL (8.5-10.1); CHLORIDE 106 mmol/L (98-107); CO2 25 mmol/L (21-32); CREATININE 0.5 mg/dL (0.55-1.3); GLUCOSE,RANDOM 75 mg/dL (74-106); POTASSIUM 3.6 mmol/L (3.5-5.1); SODIUM 138 mmol/L (136-145)
--- NOTE | 2019-01-29 09:31 | PN ---
Progress Note, Physician - Current Medication List Current Medications: Active Medications Atorvastatin Calcium (Lipitor -) 20 mg PO HS ROSA M Levofloxacin (Levaquin 500 Mg Premixed Ivpb -) 500 mg in 100 mls @ 100 mls/hr IVPB DAILY ROSA M; Protocol Pantoprazole Sodium (Protonix -) 20 mg PO DAILY ROSA M - Objective Vital Signs: Vital Signs Temperature 98.1 F 01/29/19 06:00 Pulse Rate 76 01/29/19 06:00 Respiratory Rate 01/29/19 06:00 Blood Pressure 116/84 01/29/19 06:00 O2 Sat by Pulse Oximetry (%) 98 01/29/19 06:00 Cardiovascular: Yes: Regular Rate and Rhythm Respiratory: Yes: Regular, CTA Bilaterally Gastrointestinal: Yes: Normal Bowel Sounds, Soft. No: Tenderness Labs: CBC, BMP 01/29/19 06:20 01/29/19 06:20 INR, PTT INR 1.26 (0.83-1.09) H 01/29/19 01:38 Problem List - Problems (1) Urinary retention Assessment/Plan: unable to insert hernandez urology consult further plan per urology iv abx Code(s): R33.9 - RETENTION OF URINE, UNSPECIFIED (2) History of prostate cancer Code(s): Z85.46 - PERSONAL HISTORY OF MALIGNANT NEOPLASM OF PROSTATE (3) HLD (hyperlipidemia) Assessment/Plan: same meds Code(s): E78.5 - HYPERLIPIDEMIA, UNSPECIFIED
[2019-01-29] MEDS ORDERED: PANTOPRAZOLE 20 MG TABLET (FP) PO SCH (10:00)
[2019-01-29] MEDS ORDERED: ONDANSETRON 4 MG/2 ML VIAL IVPUSH PRN ×2 (10:31→12:01)
[2019-01-29] MEDS ORDERED: MIDAZOLAM HCL 2 MG/2 ML SINGLE DOSE VIAL ONE (10:37)
[2019-01-29] MEDS ORDERED: PROPOFOL 20 ML ONE ×2 (10:43)
[2019-01-29] MEDS ORDERED: ROCURONIUM BROMIDE 50 MG/5 ML VIAL ONE (10:43)
[2019-01-29] MEDS ORDERED: LACTATED RINGERS SOLUTION 1,000 ML IV SCH ×2 (10:45→12:01)
--- NOTE | 2019-01-29 11:40 | OP ---
Operative Note - Note: Operative Date: 01/29/19 Pre-Operative Diagnosis: Urinary Retention, Urethral Stricture Operation: Cysto, Visual Urethrotomy, Dilatation and Catheterization Findings: Severe posterior urethral stricture Post-Operative Diagnosis: Same as Pre-op Surgeon: James Levine Operative Report Dictated: Yes
[2019-01-29] MEDS ORDERED: ACETAMINOPHEN 1000 MG/100 ML VIAL (NON FORMULARY) IVPB ONE (11:42)
[2019-01-29] MEDS ORDERED: MEPERIDINE HCL 25 MG/ML VIAL IVPUSH ONE (11:42)
[2019-01-29] MEDS ORDERED: oxyCODONE HCL 5 MG TABLET PO PRN ×3 (12:08→23:08)
[2019-01-29] MEDS: ONDANSETRON 4 MG/2 ML VIAL IVPUSH PRN (13:30)
--- NOTE | 2019-01-29 13:57 | OP ---
DATE OF OPERATION: 01/29/2019 SURGEON: James Levine MD ANESTHESIA: General. PREOPERATIVE DIAGNOSIS: Urinary retention. POSTOPERATIVE DIAGNOSES: Urinary retention. Urethral stricture. PROCEDURES: Cystoscopy, visual urethrotomy, dilatation, and Bautista catheterization. FINDINGS: Anterior urethra found to be normal. Severe, dense stricture noted in the posterior urethra. Bladder neck was wide open. Bladder was grossly distended. PROCEDURE: Patient in lithotomy position under anesthesia was prepped and draped in the usual manner. A cystoscopy was attempted with a 22-scope, but the stricture was so dense it could not be passed into the bladder, and a guide wire was placed in the bladder with some difficulty. Then, the visual urethrotome was used and urethrotomy performed over the guide wire in multiple directions and finally the stricture widened. The urethra was dilated and a 20-coude catheter was placed. Bladder irrigated. Patient at that point tolerated the procedure well and left the operating room in a satisfactory condition. Delonte BLAKE/[id number]
--- NOTE | 2019-01-29 14:34 | EKG ---
Test Reason : Blood Pressure : / mmHG Vent. Rate : 069 BPM Atrial Rate : 069 BPM P-R Int : 142 ms QRS Dur : 090 ms QT Int : 414 ms P-R-T Axes : 071 072 061 degrees QTc Int : 443 ms SINUS RHYTHM WITH PREMATURE SUPRAVENTRICULAR COMPLEXES OTHERWISE NORMAL ECG WHEN COMPARED WITH ECG OF 30-MAR-2018 18:37, ST NO LONGER DEPRESSED IN ANTEROLATERAL LEADS NONSPECIFIC T WAVE ABNORMALITY NO LONGER EVIDENT IN INFERIOR LEADS Confirmed by MD Tita, Robson ([id number]) on 01/29/2019 2:34:07 PM Referred By: Isael BOOKER Confirmed By:Robson Rivers MD
[2019-01-29] MEDS ORDERED: ceFAZolin 2 GRAM PREMIX BAG IVPB ONE (14:40)
[2019-01-29] MEDS ORDERED: IBUPROFEN 800 MG/8 ML IJ IVPB ONE (14:49)
[2019-01-29 14:58] LABS: HEMATOCRIT 37.3 % (35.4-49); HEMOGLOBIN 12.3 GM/dL (11.7-16.9); MCH 28.7 pg (25.7-33.7); MCHC 33.1 g/dl (32.0-35.9); MEAN CELL VOLUME 86.7 fl (80-96); MEAN PLT VOLUME 8.8 fl (7.5-11.1); PLATELET COUNT 214 K/MM3 (134-434); RBC 4.31 M/mm3 (4.00-5.60); RDW 14.7 % (11.9-15.9)
[2019-01-29] MEDS ORDERED: CEFAZOLIN 2 GM/D5W 2 GM/50 ML ML IVPB ONE (15:00)
--- NOTE | 2019-01-29 15:04 | CON.ID ---
Consult Consult Specialty:: infectious diseases Referred by:: Reason for Consultation:: sepsis uti,fever - History of Present Illness Chief Complaint: inability to pass urine History of Present Illness: 73 year old male with past medical history significant for prostate cancer s/p seed and radiation therapy in 2003 and urinary retention with multiple TURPs and hyperlipidemia who presented to ER for symptoms of intermittent urinary retention x 3 days. Pt stated he often gets clots or scar tissue in the bladder which will block his urination and todays symptoms were similar. Pt reported intermittent suprapubic pain and dysuria. Pt denied fever, chills, nausea, vomiting, chest pain or shortness of breath. In the ER nursing staff attempted to pass a hernandez to obtain urine specimen however was unsuccessful. He is being admitted for further medical management and Urology evaluation. Labs notable for a normal creatinine, blood pressure is slightly elevated. patient in the emergency room was tried catheterization for joey an hour according to the information. Urology was called patient was taken to the operating room and dilated and catheter was placed post surgery patient started having shivering chills and high grade fever and currently febrile in the OR - History Source History Provided By: Patient, Medical Record Limitations to Obtaining History: Clinical Condition - Alcohol/Substance Use Hx Alcohol Use: No - Smoking History Smoking history: Unknown if ever smoked Have you smoked in the past 12 months: No Aproximately how many cigarettes per day: 0 Home Medications - Allergies Allergies/Adverse Reactions: Allergies Allergy/AdvReac Type Severity Reaction Status Date / Time Penicillins Allergy Unknown Verified 03/30/18 18:08 - Home Medications Home Medications: Ambulatory Orders Atorvastatin Ca [Lipitor] 20 mg NR DAILY #0 tab 09/09/17 Omeprazole 20 mg PO DAILY #0 cap 09/09/17 Cefuroxime Axetil [Ceftin -] 500 mg PO BID #14 tablet 04/02/18 Review of Systems - Review of Systems Constitutional: reports: Chills, Fever Eyes: reports: No Symptoms HENT: reports: No Symptoms Neck: reports: No Symptoms Cardiovascular: reports: No Symptoms Respiratory: reports: No Symptoms Gastrointestinal: reports: No Symptoms Genitourinary: reports: Incontinence, Other (inability to pass urine) Integumentary: reports: No Symptoms Neurological: reports: No Symptoms Endocrine: reports: No Symptoms Hematology/Lymphatic: reports: No Symptoms Psychiatric: reports: No Symptoms Physical Exam Vital Signs: Vital Signs Temperature 98.4 F 01/29/19 11:30 Pulse Rate 89 01/29/19 13:15 Respiratory Rate 16 01/29/19 13:15 Blood Pressure 118/53 L 01/29/19 13:15 O2 Sat by Pulse Oximetry (%) 98 01/29/19 13:15 Constitutional: Yes: Well Nourished, Mild Distress Eyes: Yes: Conjunctiva Clear HENT: Yes: Atraumatic, Normocephalic Neck: Yes: Supple, Trachea Midline Cardiovascular: Yes: Regular Rate and Rhythm, Tachycardia Respiratory: Yes: Regular, CTA Bilaterally Gastrointestinal: Yes: Normal Bowel Sounds, Soft Renal/: Yes: Hernandez Present, Hematuria Musculoskeletal: Yes: WNL Extremities: Yes: WNL Neurological: Yes: Alert, Oriented Psychiatric: Yes: Alert, Oriented Imaging - Results Chest X-ray: Report Reviewed, Image Reviewed Assessment/Plan this 73 y/o patient with prostate ca and other medical problems post procedure went into sepsis and spiking fevers patient still spiking fevers has received couple of doses of abx in the or plan sepsis uti heamturia fever plan will start on syn urology to follow close watch on fevers await for blood cx report rest as per urology
[2019-01-29 15:12] LABS: WHITE BLOOD COUNT 1.1 K/mm3 (4.0-10.0)
[2019-01-29] MEDS ORDERED: PIPERACILLIN/TAZOB 4.5 GM 4.5 GM in DEXTROSE 5%-WATER 100 ML IVPB SCH (15:15)
[2019-01-29 15:22] LABS: ANION GAP 10 MMOL/L (8-16); BLOOD UREA NITROGEN 14 mg/dL (7-18); CHLORIDE 106 mmol/L (98-107); CO2 26 mmol/L (21-32); CREATININE 0.8 mg/dL (0.55-1.3); GLUCOSE,RANDOM 75 mg/dL (74-106); POTASSIUM 3.5 mmol/L (3.5-5.1); SODIUM 141 mmol/L (136-145)
[2019-01-29] MEDS ORDERED: PIPERACILLIN/TAZOBACTAM 4.5 GM VIAL IVPB ONE (16:00)
[2019-01-29] MEDS ORDERED: ACETAMINOPHEN 325 MG TABLET (FP) PO PRN ×2 (17:00→22:17)
[2019-01-29] MEDS: LACTATED RINGERS SOLUTION 1,000 ML IV SCH (17:35)
[2019-01-29] MEDS ORDERED: CEFAZOLIN 1 GM/D5W 1 GM/50 ML BAG IVPB SCH (22:00)
[2019-01-29] MEDS ORDERED: ATORVASTATIN CA 20 MG TABLET (FP) PO SCH ×4 (22:00)
[2019-01-29] MEDS: ATORVASTATIN CA 20 MG TABLET (FP) PO SCH (23:35)
[2019-01-30] MEDS ORDERED: MAG HYDROX/AL HYDROX/SIMETH 30 ML UNIT-DOSE CUP PO ONE (01:19)
[2019-01-30] MEDS: ONDANSETRON 4 MG/2 ML VIAL IVPUSH PRN (02:10)
[2019-01-30] MEDS ORDERED: PIPERACILLIN/TAZOBACTAM 4.5 GM VIAL IVPB ONE ×3 (02:25→16:54)
[2019-01-30] MEDS ORDERED: DEXTROSE 5%-WATER 100 ML IVPB ONE ×3 (02:26→16:54)
[2019-01-30] MEDS: PIPERACILLIN/TAZOB 4.5 GM 4.5 GM in DEXTROSE 5%-WATER 100 ML IVPB SCH ×3 (02:35→17:10)
[2019-01-30] MEDS: LACTATED RINGERS SOLUTION 1,000 ML IV SCH ×3 (06:21→21:42)
[2019-01-30 07:56] LABS: BASO % 0.2 % (0-2.0); HEMATOCRIT 31.1 % (35.4-49); HEMOGLOBIN 10.4 GM/dL (11.7-16.9); LYMPH % 2.4 % (8-40); MCH 28.9 pg (25.7-33.7); MCHC 33.6 g/dl (32.0-35.9); MEAN PLT VOLUME 9.5 fl (7.5-11.1); MONO % 3.9 % (3.8-10.2); NEUT % 93.5 % (42.8-82.8); PLATELET COUNT 140 K/MM3 (134-434); RBC 3.61 M/mm3 (4.00-5.60); WHITE BLOOD COUNT 9.4 K/mm3 (4.0-10.0)
[2019-01-30 08:24] LABS: ANION GAP 6 MMOL/L (8-16); BLOOD UREA NITROGEN 22 mg/dL (7-18); CALCIUM 7.4 mg/dL (8.5-10.1); CHLORIDE 103 mmol/L (98-107); CO2 26 mmol/L (21-32); GLUCOSE,RANDOM 141 mg/dL (74-106); POTASSIUM 3.8 mmol/L (3.5-5.1); SODIUM 136 mmol/L (136-145)
[2019-01-30] MEDS: PANTOPRAZOLE 20 MG TABLET (FP) PO SCH (09:40)
--- NOTE | 2019-01-30 09:48 | PN ---
Progress Note (short form) - Note Progress Note: Urology follow up. Pt. is stable today. Sepsis under control, white count up to 9.1, S. Creatinine is 1.0. Urine output adequate. When medically stable, can be discharged with indwelling hernandez. Will follow him as an outpatient.
[2019-01-30] MEDS ORDERED: PANTOPRAZOLE 20 MG TABLET (FP) PO SCH (10:00)
[2019-01-30 12:48] LABS: ANISOCYTOSIS 2+; MACROCYTOSIS 0; PLATELET ESTIMATE DECREASED
--- NOTE | 2019-01-30 12:52 | PN ---
Progress Note, Physician - Current Medication List Current Medications: Active Medications Acetaminophen (Tylenol -) 650 mg PO Q6H PRN PRN Reason: FEVER Last Admin: 01/30/19 06:20 Dose: 650 mg Atorvastatin Calcium (Lipitor -) 20 mg PO HS ROSA M Last Admin: 01/29/19 23:35 Dose: 20 mg Lactated Ringer's (Lactated Ringers Solution) 1,000 mls @ 75 mls/hr IV ASDIR ROSA M Last Admin: 01/30/19 06:21 Dose: 75 mls/hr Piperacillin Sod/Tazobactam (Sod 4.5 gm/ Dextrose) 100 mls @ 200 mls/hr IVPB Q8H-IV ROSA M; Protocol Last Admin: 01/30/19 09:40 Dose: 200 mls/hr Oxycodone HCl (Roxicodone -) 5 mg PO Q4H PRN PRN Reason: PAIN Pantoprazole Sodium (Protonix -) 20 mg PO DAILY ROSA M Last Admin: 01/30/19 09:40 Dose: 20 mg - Objective Vital Signs: Vital Signs Temperature 99.9 F H 01/30/19 06:00 Pulse Rate 100 H 01/30/19 06:00 Respiratory Rate 20 01/30/19 09:00 Blood Pressure 121/64 01/30/19 06:00 O2 Sat by Pulse Oximetry (%) 94 L 01/30/19 09:00 Labs: CBC, BMP 01/30/19 07:00 01/30/19 07:00 INR, PTT INR 1.26 (0.83-1.09) H 01/29/19 01:38
--- NOTE | 2019-01-30 14:42 | PN ---
Progress Note, Physician Chief Complaint: Urine Retention UTI S/p Cystoscopy History of Present Illness: Previous notes and events reviewed awake and alert NAD no complaints of pain verbalized - Current Medication List Current Medications: Active Medications Acetaminophen (Tylenol -) 650 mg PO Q6H PRN PRN Reason: FEVER Last Admin: 01/30/19 06:20 Dose: 650 mg Atorvastatin Calcium (Lipitor -) 20 mg PO HS ROSA M Last Admin: 01/29/19 23:35 Dose: 20 mg Lactated Ringer's (Lactated Ringers Solution) 1,000 mls @ 75 mls/hr IV ASDIR ROSA M Last Admin: 01/30/19 06:21 Dose: 75 mls/hr Piperacillin Sod/Tazobactam (Sod 4.5 gm/ Dextrose) 100 mls @ 200 mls/hr IVPB Q8H-IV ROSA M; Protocol Last Admin: 01/30/19 09:40 Dose: 200 mls/hr Oxycodone HCl (Roxicodone -) 5 mg PO Q4H PRN PRN Reason: PAIN Pantoprazole Sodium (Protonix -) 20 mg PO DAILY [facility] Last Admin: 01/30/19 09:40 Dose: 20 mg - Objective Vital Signs: Vital Signs Temperature 98.5 F 01/30/19 13:54 Pulse Rate 90 01/30/19 13:54 Respiratory Rate 21 H 01/30/19 13:54 Blood Pressure 102/48 L 01/30/19 13:54 O2 Sat by Pulse Oximetry (%) 94 L 01/30/19 09:00 Constitutional: Yes: No Distress, Calm Eyes: Yes: Conjunctiva Clear HENT: Yes: Atraumatic Cardiovascular: Yes: Regular Rate and Rhythm Respiratory: Yes: Regular, CTA Bilaterally Gastrointestinal: Yes: Normal Bowel Sounds, Soft Genitourinary: Yes: Bautista Present Musculoskeletal: Yes: Muscle Weakness Extremities: Yes: WNL Edema: No Neurological: Yes: Alert, Oriented Psychiatric: Yes: Alert, Oriented Labs: CBC, BMP 01/30/19 07:00 01/30/19 07:00 INR, PTT INR 1.26 (0.83-1.09) H 01/29/19 01:38 Microbiology 01/29/19 04:10 Urine - Urine Clean Catch Urine Culture - Preliminary Lactose Fermenting Neg Bacilli 01/29/19 01:40 Blood - Peripheral Venous Blood Culture - Preliminary NO GROWTH OBTAINED AFTER 24 HOURS, INCUBATION TO CONTINUE FOR 4 DAYS. 01/29/19 01:38 Blood - Peripheral Venous Blood Culture - Preliminary NO GROWTH OBTAINED AFTER 24 HOURS, INCUBATION TO CONTINUE FOR 4 DAYS. Problem List - Problems (1) HLD (hyperlipidemia) Assessment/Plan: -continue Atorvastatin Code(s): E78.5 - HYPERLIPIDEMIA, UNSPECIFIED (2) Urinary retention Assessment/Plan: -Urology on board -s/p cystoscopy and urethrotomy - care Code(s): R33.9 - RETENTION OF URINE, UNSPECIFIED (3) UTI (urinary tract infection) Assessment/Plan: -ID on board -continue IV Zosyn -no leukocytosis -afebrile -UC positive for lactose fermenting neg bacilli Code(s): N39.0 - URINARY TRACT INFECTION, SITE NOT SPECIFIED Assessment/Plan see problem list dvt ppx
[2019-01-30] MEDS: ATORVASTATIN CA 20 MG TABLET (FP) PO SCH (21:42)
[2019-01-31] MEDS ORDERED: PIPERACILLIN/TAZOBACTAM 4.5 GM VIAL IVPB ONE ×2 (01:28→17:11)
[2019-01-31] MEDS ORDERED: DEXTROSE 5%-WATER 100 ML IVPB ONE ×2 (01:28→17:11)
[2019-01-31] MEDS: PIPERACILLIN/TAZOB 4.5 GM 4.5 GM in DEXTROSE 5%-WATER 100 ML IVPB SCH ×3 (01:48→17:43)
[2019-01-31 08:38] LABS: HEMATOCRIT 32.6 % (35.4-49); HEMOGLOBIN 10.8 GM/dL (11.7-16.9); MCH 28.6 pg (25.7-33.7); MCHC 33.2 g/dl (32.0-35.9); MEAN CELL VOLUME 86.2 fl (80-96); MEAN PLT VOLUME 9.3 fl (7.5-11.1); PLATELET COUNT 137 K/MM3 (134-434); RBC 3.78 M/mm3 (4.00-5.60); RDW 15.3 % (11.9-15.9); WHITE BLOOD COUNT 12.9 K/mm3 (4.0-10.0)
[2019-01-31 09:05] LABS: ALBUMIN 2.4 g/dl (3.4-5.0); ALK PHOS 66 U/L (45-117); ANION GAP 5 MMOL/L (8-16); BILIRUBIN,TOTAL 0.5 mg/dL (0.2-1); BLOOD UREA NITROGEN 13 mg/dL (7-18); CHLORIDE 107 mmol/L (98-107); CO2 27 mmol/L (21-32); CREATININE 0.8 mg/dL (0.55-1.3); GLUCOSE,RANDOM 76 mg/dL (74-106); POTASSIUM 3.8 mmol/L (3.5-5.1); SGOT/AST 28 U/L (15-37); SGPT/ALT 22 U/L (13-61); SODIUM 139 mmol/L (136-145); TOT PROT 5.4 g/dl (6.4-8.2)
[2019-01-31] MEDS: PANTOPRAZOLE 20 MG TABLET (FP) PO SCH (09:37)
[2019-01-31] MEDS ORDERED: VANCOMYCIN 1 GM PREMIX - 1 GM/200 ML BAG IVPB ONE (11:45)
[2019-01-31] MEDS: LACTATED RINGERS SOLUTION 1,000 ML IV SCH (11:49)
--- NOTE | 2019-01-31 13:22 | PN ---
Progress Note, Physician Chief Complaint: Urine Retention UTI S/p Cystoscopy History of Present Illness: Previous notes and events reviewed awake and alert NAD no complaints of pain verbalized BC positive - Current Medication List Current Medications: Active Medications Acetaminophen (Tylenol -) 650 mg PO Q6H PRN PRN Reason: FEVER Last Admin: 01/30/19 06:20 Dose: 650 mg Atorvastatin Calcium (Lipitor -) 20 mg PO HS ROSA M Last Admin: 01/30/19 21:42 Dose: 20 mg Lactated Ringer's (Lactated Ringers Solution) 1,000 mls @ 75 mls/hr IV ASDIR ROSA M Last Admin: 01/31/19 11:49 Dose: 75 mls/hr Piperacillin Sod/Tazobactam (Sod 4.5 gm/ Dextrose) 100 mls @ 200 mls/hr IVPB Q8H-IV [facility] M; Protocol Last Admin: 01/31/19 09:37 Dose: 200 mls/hr Oxycodone HCl (Roxicodone -) 5 mg PO Q4H PRN PRN Reason: PAIN Pantoprazole Sodium (Protonix -) 20 mg PO DAILY [facility] Last Admin: 01/31/19 09:37 Dose: 20 mg - Objective Vital Signs: Vital Signs Temperature 98.6 F 01/31/19 09:30 Pulse Rate 79 01/31/19 09:30 Respiratory Rate 17 01/31/19 09:30 Blood Pressure 131/69 01/31/19 09:30 O2 Sat by Pulse Oximetry (%) 98 01/31/19 09:30 Constitutional: Yes: No Distress, Calm Eyes: Yes: Conjunctiva Clear HENT: Yes: Atraumatic Cardiovascular: Yes: Regular Rate and Rhythm Respiratory: Yes: Regular, CTA Bilaterally Gastrointestinal: Yes: Normal Bowel Sounds, Soft Genitourinary: Yes: Bautista Present Musculoskeletal: Yes: Muscle Weakness Extremities: Yes: WNL Edema: No Neurological: Yes: Alert, Oriented Psychiatric: Yes: Alert, Oriented Labs: CBC, BMP 01/31/19 08:00 01/31/19 08:00 INR, PTT INR 1.26 (0.83-1.09) H 01/29/19 01:38 Microbiology 01/29/19 04:10 Urine - Urine Clean Catch Urine Culture - Final Escherichia Coli 01/29/19 13:30 Blood - Peripheral Venous Blood Culture - Preliminary Pending Organism 01/29/19 01:40 Blood - Peripheral Venous Blood Culture - Preliminary NO GROWTH OBTAINED AFTER 48 HOURS, INCUBATION TO CONTINUE FOR 3 DAYS. 01/29/19 01:38 Blood - Peripheral Venous Blood Culture - Preliminary NO GROWTH OBTAINED AFTER 48 HOURS, INCUBATION TO CONTINUE FOR 3 DAYS. Problem List - Problems (1) HLD (hyperlipidemia) Assessment/Plan: -continue Atorvastatin Code(s): E78.5 - HYPERLIPIDEMIA, UNSPECIFIED (2) Urinary retention Assessment/Plan: -Urology on board -s/p cystoscopy and urethrotomy - care Code(s): R33.9 - RETENTION OF URINE, UNSPECIFIED (3) UTI (urinary tract infection) Assessment/Plan: -ID on board -continue IV Zosyn -WBC 12.9 -afebrile -UC positive for lactose fermenting neg bacilli Code(s): N39.0 - URINARY TRACT INFECTION, SITE NOT SPECIFIED Assessment/Plan see problem list dvt ppx
--- NOTE | 2019-01-31 15:16 | PN ---
Progress Note, Physician History of Present Illness: patient doing well no new issues no fevers blood cx positive - Current Medication List Current Medications: Active Medications Acetaminophen (Tylenol -) 650 mg PO Q6H PRN PRN Reason: FEVER Last Admin: 01/30/19 06:20 Dose: 650 mg Atorvastatin Calcium (Lipitor -) 20 mg PO HS [facility]A M Last Admin: 01/30/19 21:42 Dose: 20 mg Lactated Ringer's (Lactated Ringers Solution) 1,000 mls @ 75 mls/hr IV ASDIR ROSA M Last Admin: 01/31/19 11:49 Dose: 75 mls/hr Piperacillin Sod/Tazobactam (Sod 4.5 gm/ Dextrose) 100 mls @ 200 mls/hr IVPB Q8H-IV [facility] M; Protocol Last Admin: 01/31/19 09:37 Dose: 200 mls/hr Oxycodone HCl (Roxicodone -) 5 mg PO Q4H PRN PRN Reason: PAIN Pantoprazole Sodium (Protonix -) 20 mg PO DAILY [facility] Last Admin: 01/31/19 09:37 Dose: 20 mg - Objective Vital Signs: Vital Signs Temperature 97.8 F 01/31/19 13:54 Pulse Rate 71 01/31/19 13:54 Respiratory Rate 18 01/31/19 13:54 Blood Pressure 125/66 01/31/19 13:54 O2 Sat by Pulse Oximetry (%) 98 01/31/19 09:30 Constitutional: Yes: No Distress, Calm Cardiovascular: Yes: Regular Rate and Rhythm Respiratory: Yes: Regular, CTA Bilaterally Gastrointestinal: Yes: Normal Bowel Sounds, Soft Musculoskeletal: Yes: WNL Extremities: Yes: WNL Neurological: Yes: Alert, Oriented Labs: CBC, BMP 01/31/19 08:00 01/31/19 08:00 INR, PTT INR 1.26 (0.83-1.09) H 01/29/19 01:38 Assessment/Plan this 73 y/o patient with prostate ca and other medical problems post procedure went into sepsis and spiking fevers patient still spiking fevers has received couple of doses of abx in the or plan sepsis uti heamturia fever plan continue current mgmt blood cx positive will order a repeat blood cx rest as per the team
[2019-01-31] MEDS: ATORVASTATIN CA 20 MG TABLET (FP) PO SCH (21:10)
[2019-02-01] MEDS ORDERED: PIPERACILLIN/TAZOBACTAM 4.5 GM VIAL IVPB ONE ×3 (02:01→17:48)
[2019-02-01] MEDS ORDERED: DEXTROSE 5%-WATER 100 ML IVPB ONE ×3 (02:01→17:48)
[2019-02-01] MEDS: PIPERACILLIN/TAZOB 4.5 GM 4.5 GM in DEXTROSE 5%-WATER 100 ML IVPB SCH ×3 (02:12→17:52)
[2019-02-01] MEDS: LACTATED RINGERS SOLUTION 1,000 ML IV SCH ×3 (03:13→19:20)
[2019-02-01 07:12] LABS: HEMOGLOBIN 10.9 GM/dL (11.7-16.9); MCH 28.4 pg (25.7-33.7); MCHC 33.1 g/dl (32.0-35.9); MEAN CELL VOLUME 85.9 fl (80-96); MEAN PLT VOLUME 9.7 fl (7.5-11.1); PLATELET COUNT 131 K/MM3 (134-434); RBC 3.84 M/mm3 (4.00-5.60); RDW 15.4 % (11.9-15.9); WHITE BLOOD COUNT 12.1 K/mm3 (4.0-10.0)
[2019-02-01 07:40] LABS: ALBUMIN 2.4 g/dl (3.4-5.0); ALK PHOS 77 U/L (45-117); ANION GAP 6 MMOL/L (8-16); BILIRUBIN,TOTAL 0.8 mg/dL (0.2-1); BLOOD UREA NITROGEN 8 mg/dL (7-18); CALCIUM 7.8 mg/dL (8.5-10.1); CHLORIDE 109 mmol/L (98-107); CO2 28 mmol/L (21-32); CREATININE 0.7 mg/dL (0.55-1.3); GLUCOSE,RANDOM 83 mg/dL (74-106); POTASSIUM 3.8 mmol/L (3.5-5.1); SGOT/AST 21 U/L (15-37); SGPT/ALT 20 U/L (13-61); SODIUM 142 mmol/L (136-145); TOT PROT 5.2 g/dl (6.4-8.2)
[2019-02-01] MEDS: PANTOPRAZOLE 20 MG TABLET (FP) PO SCH (10:32)
--- NOTE | 2019-02-01 12:51 | PN ---
Progress Note, Physician Chief Complaint: Urine Retention UTI S/p Cystoscopy History of Present Illness: Previous notes and events reviewed awake and alert NAD no complaints of pain verbalized BC prelim positive - Current Medication List Current Medications: Active Medications Acetaminophen (Tylenol -) 650 mg PO Q6H PRN PRN Reason: FEVER Last Admin: 01/30/19 06:20 Dose: 650 mg Atorvastatin Calcium (Lipitor -) 20 mg PO HS [facility]A M Last Admin: 01/31/19 21:10 Dose: 20 mg Lactated Ringer's (Lactated Ringers Solution) 1,000 mls @ 75 mls/hr IV ASDIR ROSA M Last Admin: 02/01/19 03:13 Dose: 75 mls/hr Piperacillin Sod/Tazobactam (Sod 4.5 gm/ Dextrose) 100 mls @ 200 mls/hr IVPB Q8H-IV [facility] M; Protocol Last Admin: 02/01/19 10:33 Dose: 200 mls/hr Oxycodone HCl (Roxicodone -) 5 mg PO Q4H PRN PRN Reason: PAIN Pantoprazole Sodium (Protonix -) 20 mg PO DAILY [facility] Last Admin: 02/01/19 10:32 Dose: 20 mg - Objective Vital Signs: Vital Signs Temperature 98.4 F 02/01/19 06:00 Pulse Rate 68 02/01/19 06:00 Respiratory Rate 18 02/01/19 09:00 Blood Pressure 138/70 02/01/19 06:00 O2 Sat by Pulse Oximetry (%) 95 02/01/19 09:00 Constitutional: Yes: No Distress, Calm Eyes: Yes: Conjunctiva Clear HENT: Yes: Atraumatic Cardiovascular: Yes: Regular Rate and Rhythm Respiratory: Yes: Regular, CTA Bilaterally Gastrointestinal: Yes: Normal Bowel Sounds, Soft Genitourinary: Yes: Bautista Present Musculoskeletal: Yes: Muscle Weakness Extremities: Yes: WNL Edema: No Neurological: Yes: Alert, Oriented Psychiatric: Yes: Alert, Oriented Labs: CBC, BMP 02/01/19 06:10 02/01/19 06:10 INR, PTT INR 1.26 (0.83-1.09) H 01/29/19 01:38 Microbiology 01/29/19 13:30 Blood - Peripheral Venous Blood Culture - Preliminary Pending Organism 01/29/19 01:40 Blood - Peripheral Venous Blood Culture - Preliminary NO GROWTH OBTAINED AFTER 72 HOURS, INCUBATION TO CONTINUE FOR 2 DAYS. 01/29/19 01:38 Blood - Peripheral Venous Blood Culture - Preliminary NO GROWTH OBTAINED AFTER 72 HOURS, INCUBATION TO CONTINUE FOR 2 DAYS. 01/29/19 04:10 Urine - Urine Clean Catch Urine Culture - Final Escherichia Coli Problem List - Problems (1) HLD (hyperlipidemia) Assessment/Plan: -continue Atorvastatin Code(s): E78.5 - HYPERLIPIDEMIA, UNSPECIFIED (2) Urinary retention Assessment/Plan: -Urology on board -s/p cystoscopy and urethrotomy - care Code(s): R33.9 - RETENTION OF URINE, UNSPECIFIED (3) UTI (urinary tract infection) Assessment/Plan: -ID on board -continue IV Zosyn -WBC 12.1 -afebrile -UC positive for lactose fermenting neg bacilli Code(s): N39.0 - URINARY TRACT INFECTION, SITE NOT SPECIFIED (4) Sepsis Assessment/Plan: -WBC 12.1 -prelim BC positive -repeat BC drawn this AM -aferbile -UC positive for E.coli -continue with IV Zosyn Code(s): A41.9 - SEPSIS, UNSPECIFIED ORGANISM Assessment/Plan see problem list dvt ppx
--- NOTE | 2019-02-01 13:27 | PN ---
Progress Note, Physician History of Present Illness: remaining afebrile no distress - Current Medication List Current Medications: Active Medications Acetaminophen (Tylenol -) 650 mg PO Q6H PRN PRN Reason: FEVER Last Admin: 01/30/19 06:20 Dose: 650 mg Atorvastatin Calcium (Lipitor -) 20 mg PO HS [facility] M Last Admin: 01/31/19 21:10 Dose: 20 mg Lactated Ringer's (Lactated Ringers Solution) 1,000 mls @ 75 mls/hr IV ASDIR ROSA M Last Admin: 02/01/19 03:13 Dose: 75 mls/hr Piperacillin Sod/Tazobactam (Sod 4.5 gm/ Dextrose) 100 mls @ 200 mls/hr IVPB Q8H-IV [facility]; Protocol Last Admin: 02/01/19 10:33 Dose: 200 mls/hr Oxycodone HCl (Roxicodone -) 5 mg PO Q4H PRN PRN Reason: PAIN Pantoprazole Sodium (Protonix -) 20 mg PO DAILY [facility] Last Admin: 02/01/19 10:32 Dose: 20 mg - Objective Vital Signs: Vital Signs Temperature 98.2 F 02/01/19 12:00 Pulse Rate 70 02/01/19 12:00 Respiratory Rate 18 02/01/19 12:00 Blood Pressure 152/75 02/01/19 12:00 O2 Sat by Pulse Oximetry (%) 95 02/01/19 09:00 Constitutional: Yes: No Distress, Calm Cardiovascular: Yes: Regular Rate and Rhythm Respiratory: Yes: Regular, CTA Bilaterally Gastrointestinal: Yes: Normal Bowel Sounds, Soft Musculoskeletal: Yes: WNL Extremities: Yes: WNL Neurological: Yes: Alert, Oriented Psychiatric: Yes: Alert, Oriented Labs: CBC, BMP 02/01/19 06:10 02/01/19 06:10 INR, PTT INR 1.26 (0.83-1.09) H 01/29/19 01:38 Assessment/Plan this 73 y/o patient with prostate ca and other medical problems post procedure went into sepsis and spiking fevers plan sepsis uti heamturia fever plan continue current mgmt blood cx positive will order a repeat blood cx rest as per the team
--- NOTE | 2019-02-01 18:19 | PN ---
Progress Note (short form) - Note Progress Note: UROLOGY NOTE S/P IU on hernandez catheter. history of sepsis on IV abx, doing better no pain no fever. hernandez catheter draining clear urine. WBC 12.0 BUN S.Creat 0.7 keep hernandez catheter continue IV abx discharge with hernandez catheter to leg bag Keflex 500mg TID 1 WEEK RTC Monday for D/C hernandez catheter.
[2019-02-01] MEDS: ATORVASTATIN CA 20 MG TABLET (FP) PO SCH (21:29)
[2019-02-02] MEDS ORDERED: DEXTROSE 5%-WATER 100 ML IVPB ONE ×3 (01:38→17:18)
[2019-02-02] MEDS ORDERED: PIPERACILLIN/TAZOBACTAM 4.5 GM VIAL IVPB ONE ×3 (01:38→17:18)
[2019-02-02] MEDS: PIPERACILLIN/TAZOB 4.5 GM 4.5 GM in DEXTROSE 5%-WATER 100 ML IVPB SCH ×3 (01:55→17:43)
[2019-02-02] MEDS: LACTATED RINGERS SOLUTION 1,000 ML IV SCH (09:47)
[2019-02-02] MEDS: PANTOPRAZOLE 20 MG TABLET (FP) PO SCH (09:47)
--- NOTE | 2019-02-02 14:11 | PN ---
Progress Note, Physician Chief Complaint: UTI History of Present Illness: NAD Seen by Urology and ID On IV abx S/P cystoscopy - Current Medication List Current Medications: Active Medications Acetaminophen (Tylenol -) 650 mg PO Q6H PRN PRN Reason: FEVER Last Admin: 01/30/19 06:20 Dose: 650 mg Atorvastatin Calcium (Lipitor -) 20 mg PO HS [facility] M Last Admin: 02/01/19 21:29 Dose: 20 mg Lactated Ringer's (Lactated Ringers Solution) 1,000 mls @ 75 mls/hr IV ASDIR [facility] M Last Admin: 02/02/19 09:47 Dose: 75 mls/hr Piperacillin Sod/Tazobactam (Sod 4.5 gm/ Dextrose) 100 mls @ 200 mls/hr IVPB Q8H-IV [facility]; Protocol Last Admin: 02/02/19 09:47 Dose: 200 mls/hr Pantoprazole Sodium (Protonix -) 20 mg PO DAILY [facility] Last Admin: 02/02/19 09:47 Dose: 20 mg - Objective Vital Signs: Vital Signs Temperature 98.0 F 02/02/19 09:07 Pulse Rate 76 02/02/19 09:07 Respiratory Rate 18 02/02/19 09:07 Blood Pressure 162/83 02/02/19 09:07 O2 Sat by Pulse Oximetry (%) 95 02/02/19 09:00 Constitutional: Yes: Well Nourished, No Distress, Calm Cardiovascular: Yes: Regular Rate and Rhythm Respiratory: Yes: Regular Gastrointestinal: Yes: Normal Bowel Sounds, Soft Genitourinary: Yes: Hernandez Present Musculoskeletal: Yes: WNL Extremities: Yes: WNL Edema: No Peripheral Pulses WNL: Yes Neurological: Yes: Alert, Oriented Psychiatric: Yes: Alert, Oriented Labs: CBC, BMP 02/01/19 06:10 02/01/19 06:10 INR, PTT INR 1.26 (0.83-1.09) H 01/29/19 01:38 Assessment/Plan (1) HLD (hyperlipidemia) Assessment/Plan: -continue Atorvastatin Code(s): E78.5 - HYPERLIPIDEMIA, UNSPECIFIED (2) Urinary retention Assessment/Plan: -Urology on board -s/p cystoscopy and urethrotomy -FC care -will go home with hernandez -s/p cystoscopy-showed Severe posterior urethral stricture Code(s): R33.9 - RETENTION OF URINE, UNSPECIFIED (3) UTI (urinary tract infection) Assessment/Plan: -ID on board -continue IV Zosyn -afebrile -UC positive for lactose fermenting neg bacilli Code(s): N39.0 - URINARY TRACT INFECTION, SITE NOT SPECIFIED (4) Sepsis Assessment/Plan: -repeat BC pending -aferbile -UC positive for E.coli -continue with IV Zosyn Code(s): A41.9 - SEPSIS, UNSPECIFIED ORGANISM
--- NOTE | 2019-02-02 15:10 | PN ---
Progress Note, Physician History of Present Illness: Pt seen and examined. Events noted, labs reviewed. States he is feeling well, afebrile. wbc mildly elevated, no distress noted. - Current Medication List Current Medications: Active Medications Acetaminophen (Tylenol -) 650 mg PO Q6H PRN PRN Reason: FEVER Last Admin: 01/30/19 06:20 Dose: 650 mg Atorvastatin Calcium (Lipitor -) 20 mg PO HS [facility] M Last Admin: 02/01/19 21:29 Dose: 20 mg Lactated Ringer's (Lactated Ringers Solution) 1,000 mls @ 75 mls/hr IV ASDIR [facility]A M Last Admin: 02/02/19 09:47 Dose: 75 mls/hr Piperacillin Sod/Tazobactam (Sod 4.5 gm/ Dextrose) 100 mls @ 200 mls/hr IVPB Q8H-IV [facility]; Protocol Last Admin: 02/02/19 09:47 Dose: 200 mls/hr Pantoprazole Sodium (Protonix -) 20 mg PO DAILY [facility] Last Admin: 02/02/19 09:47 Dose: 20 mg - Objective Vital Signs: Vital Signs Temperature 98.0 F 02/02/19 09:07 Pulse Rate 76 02/02/19 09:07 Respiratory Rate 18 02/02/19 09:07 Blood Pressure 162/83 02/02/19 09:07 O2 Sat by Pulse Oximetry (%) 95 02/02/19 09:00 Constitutional: Yes: No Distress, Calm Eyes: Yes: Conjunctiva Clear Cardiovascular: Yes: Regular Rate and Rhythm Respiratory: Yes: Regular Gastrointestinal: Yes: Normal Bowel Sounds, Soft Genitourinary: Yes: Bautista Present Edema: No Integumentary: Yes: WNL Neurological: Yes: Alert Labs: CBC, BMP 02/01/19 06:10 02/01/19 06:10 INR, PTT INR 1.26 (0.83-1.09) H 01/29/19 01:38 Microbiology 01/29/19 13:30 Blood - Peripheral Venous Blood Culture - Final Gemella Morbillorum 02/01/19 06:10 Blood - Peripheral Venous Blood Culture - Preliminary NO GROWTH OBTAINED AFTER 24 HOURS, INCUBATION TO CONTINUE FOR 4 DAYS. 02/01/19 06:10 Blood - Peripheral Venous Blood Culture - Preliminary NO GROWTH OBTAINED AFTER 24 HOURS, INCUBATION TO CONTINUE FOR 4 DAYS. 01/29/19 01:40 Blood - Peripheral Venous Blood Culture - Preliminary NO GROWTH OBTAINED AFTER 96 HOURS, INCUBATION TO CONTINUE FOR 1 DAYS. 01/29/19 01:38 Blood - Peripheral Venous Blood Culture - Preliminary NO GROWTH OBTAINED AFTER 96 HOURS, INCUBATION TO CONTINUE FOR 1 DAYS. 01/29/19 04:10 Urine - Urine Clean Catch Urine Culture - Final Escherichia Coli Problem List - Problems (1) Sepsis Code(s): A41.9 - SEPSIS, UNSPECIFIED ORGANISM (2) Urinary retention Code(s): R33.9 - RETENTION OF URINE, UNSPECIFIED (3) Fever Code(s): R50.9 - FEVER, UNSPECIFIED (4) History of prostate cancer Code(s): Z85.46 - PERSONAL HISTORY OF MALIGNANT NEOPLASM OF PROSTATE (5) UTI (urinary tract infection) Code(s): N39.0 - URINARY TRACT INFECTION, SITE NOT SPECIFIED (6) Urinary (tract) obstruction Code(s): N13.9 - OBSTRUCTIVE AND REFLUX UROPATHY, UNSPECIFIED Assessment/Plan Complicated UTI - resistant E. coli s/p Sepsis Urinary retention/urethral stricture s/p cystoscopy/urethrotomy Fever- resolved Leukocytosis Hx of Prostate CA s/p seed implant/RT -- culture results noted, latest blood cultures neg -- Pt will need 6 more days of IV antibiotics, continue -- wbc mildly elevated, monitor
[2019-02-02] MEDS: ATORVASTATIN CA 20 MG TABLET (FP) PO SCH (21:52)
[2019-02-03] MEDS ORDERED: PIPERACILLIN/TAZOBACTAM 4.5 GM VIAL IVPB ONE ×3 (02:41→16:44)
[2019-02-03] MEDS ORDERED: DEXTROSE 5%-WATER 100 ML IVPB ONE ×3 (02:42→16:44)
[2019-02-03] MEDS: PIPERACILLIN/TAZOB 4.5 GM 4.5 GM in DEXTROSE 5%-WATER 100 ML IVPB SCH ×3 (02:48→17:38)
[2019-02-03] MEDS: PANTOPRAZOLE 20 MG TABLET (FP) PO SCH (09:23)
--- NOTE | 2019-02-03 10:21 | PN ---
Progress Note, Physician Chief Complaint: UTI History of Present Illness: NAD Seen by Urology and ID On IV abx S/P cystoscopy Pt will need 6 more days of IV abx - Current Medication List Current Medications: Active Medications Acetaminophen (Tylenol -) 650 mg PO Q6H PRN PRN Reason: FEVER Last Admin: 01/30/19 06:20 Dose: 650 mg Atorvastatin Calcium (Lipitor -) 20 mg PO HS [facility] M Last Admin: 02/02/19 21:52 Dose: 20 mg Lactated Ringer's (Lactated Ringers Solution) 1,000 mls @ 75 mls/hr IV ASDIR [facility] M Last Admin: 02/02/19 09:47 Dose: 75 mls/hr Piperacillin Sod/Tazobactam (Sod 4.5 gm/ Dextrose) 100 mls @ 200 mls/hr IVPB Q8H-IV [facility]; Protocol Last Admin: 02/03/19 09:24 Dose: 200 mls/hr Pantoprazole Sodium (Protonix -) 20 mg PO DAILY [facility] Last Admin: 02/03/19 09:23 Dose: 20 mg - Objective Vital Signs: Vital Signs Temperature 98.2 F 02/03/19 09:44 Pulse Rate 75 02/03/19 09:44 Respiratory Rate 18 02/03/19 09:44 Blood Pressure 148/72 02/03/19 09:44 O2 Sat by Pulse Oximetry (%) 95 02/02/19 21:00 Constitutional: Yes: Well Nourished, No Distress, Calm Cardiovascular: Yes: Regular Rate and Rhythm Respiratory: Yes: Regular Gastrointestinal: Yes: WNL Genitourinary: Yes: Hernandez Present Musculoskeletal: Yes: WNL Extremities: Yes: WNL Edema: No Peripheral Pulses WNL: Yes Neurological: Yes: Alert, Oriented Psychiatric: Yes: Alert, Oriented Labs: CBC, BMP 02/01/19 06:10 02/01/19 06:10 INR, PTT INR 1.26 (0.83-1.09) H 01/29/19 01:38 Assessment/Plan (1) HLD (hyperlipidemia) Assessment/Plan: -continue Atorvastatin Code(s): E78.5 - HYPERLIPIDEMIA, UNSPECIFIED (2) Urinary retention Assessment/Plan: -Urology on board -s/p cystoscopy and urethrotomy -FC care -will go home with hernandez -s/p cystoscopy-showed Severe posterior urethral stricture Code(s): R33.9 - RETENTION OF URINE, UNSPECIFIED (3) UTI (urinary tract infection) Assessment/Plan: -ID on board -continue IV Zosyn -afebrile -UC: Microbiology 02/01/19 06:10 Blood - Peripheral Venous Blood Culture - Preliminary NO GROWTH OBTAINED AFTER 48 HOURS, INCUBATION TO CONTINUE FOR 3 DAYS. 02/01/19 06:10 Blood - Peripheral Venous Blood Culture - Preliminary NO GROWTH OBTAINED AFTER 48 HOURS, INCUBATION TO CONTINUE FOR 3 DAYS. 01/29/19 01:40 Blood - Peripheral Venous Blood Culture - Final NO GROWTH AFTER 5 DAYS INCUBATION 01/29/19 01:38 Blood - Peripheral Venous Blood Culture - Final NO GROWTH AFTER 5 DAYS INCUBATION 01/29/19 13:30 Blood - Peripheral Venous Blood Culture - Final Gemella Morbillorum 01/29/19 04:10 Urine - Urine Clean Catch Urine Culture - Final Escherichia Coli -5 more days of abx Code(s): N39.0 - URINARY TRACT INFECTION, SITE NOT SPECIFIED (4) Sepsis Assessment/Plan: -repeat BC pending -aferbile -UC positive for E.coli -continue with IV Zosyn Code(s): A41.9 - SEPSIS, UNSPECIFIED ORGANISM
--- NOTE | 2019-02-03 14:54 | PN ---
Progress Note, Physician History of Present Illness: Pt alert, remains afebrile. Has no new complaints. - Current Medication List Current Medications: Active Medications Acetaminophen (Tylenol -) 650 mg PO Q6H PRN PRN Reason: FEVER Last Admin: 01/30/19 06:20 Dose: 650 mg Atorvastatin Calcium (Lipitor -) 20 mg PO HS [facility] Last Admin: 02/02/19 21:52 Dose: 20 mg Lactated Ringer's (Lactated Ringers Solution) 1,000 mls @ 75 mls/hr IV ASDIR [facility]A M Last Admin: 02/02/19 09:47 Dose: 75 mls/hr Piperacillin Sod/Tazobactam (Sod 4.5 gm/ Dextrose) 100 mls @ 200 mls/hr IVPB Q8H-IV [facility]; Protocol Last Admin: 02/03/19 09:24 Dose: 200 mls/hr Pantoprazole Sodium (Protonix -) 20 mg PO DAILY [facility] Last Admin: 02/03/19 09:23 Dose: 20 mg - Objective Vital Signs: Vital Signs Temperature 98.2 F 02/03/19 13:55 Pulse Rate 76 02/03/19 13:55 Respiratory Rate 18 02/03/19 13:55 Blood Pressure 146/69 02/03/19 13:55 O2 Sat by Pulse Oximetry (%) 96 02/03/19 09:00 Constitutional: Yes: No Distress, Calm Cardiovascular: Yes: Regular Rate and Rhythm Respiratory: Yes: Regular Gastrointestinal: Yes: Normal Bowel Sounds, Soft Genitourinary: Yes: Bautista Present (clear, yellow urine) Extremities: Yes: WNL Integumentary: Yes: WNL Neurological: Yes: Alert Labs: CBC, BMP 02/01/19 06:10 02/01/19 06:10 INR, PTT INR 1.26 (0.83-1.09) H 01/29/19 01:38 Microbiology 02/01/19 06:10 Blood - Peripheral Venous Blood Culture - Preliminary NO GROWTH OBTAINED AFTER 48 HOURS, INCUBATION TO CONTINUE FOR 3 DAYS. 02/01/19 06:10 Blood - Peripheral Venous Blood Culture - Preliminary NO GROWTH OBTAINED AFTER 48 HOURS, INCUBATION TO CONTINUE FOR 3 DAYS. 01/29/19 01:40 Blood - Peripheral Venous Blood Culture - Final NO GROWTH AFTER 5 DAYS INCUBATION 01/29/19 01:38 Blood - Peripheral Venous Blood Culture - Final NO GROWTH AFTER 5 DAYS INCUBATION 01/29/19 13:30 Blood - Peripheral Venous Blood Culture - Final Gemella Morbillorum 01/29/19 04:10 Urine - Urine Clean Catch Urine Culture - Final Escherichia Coli Problem List - Problems (1) Sepsis Code(s): A41.9 - SEPSIS, UNSPECIFIED ORGANISM (2) Urinary retention Code(s): R33.9 - RETENTION OF URINE, UNSPECIFIED (3) Fever Code(s): R50.9 - FEVER, UNSPECIFIED (4) History of prostate cancer Code(s): Z85.46 - PERSONAL HISTORY OF MALIGNANT NEOPLASM OF PROSTATE (5) UTI (urinary tract infection) Code(s): N39.0 - URINARY TRACT INFECTION, SITE NOT SPECIFIED (6) Urinary (tract) obstruction Code(s): N13.9 - OBSTRUCTIVE AND REFLUX UROPATHY, UNSPECIFIED Assessment/Plan Complicated UTI - resistant E. coli Bacteremia s/p Sepsis Urinary retention/urethral stricture s/p cystoscopy/urethrotomy Fever- resolved Leukocytosis Hx of Prostate CA s/p seed implant/RT -- latest blood cultures no growth, afebrile, stable -- PCN allergic, tolerating current antibiotic -- recommend 5 more days of IV antibiotics, may switch to Ertapenem 1 gram IV daily if d/c home tomorrow
[2019-02-03] MEDS: LACTATED RINGERS SOLUTION 1,000 ML IV SCH (17:00)
[2019-02-03] MEDS: ATORVASTATIN CA 20 MG TABLET (FP) PO SCH (21:31)
[2019-02-04] MEDS ORDERED: DEXTROSE 5%-WATER 100 ML IVPB ONE ×3 (02:38→16:44)
[2019-02-04] MEDS ORDERED: PIPERACILLIN/TAZOBACTAM 4.5 GM VIAL IVPB ONE ×3 (02:38→16:44)
[2019-02-04] MEDS: PIPERACILLIN/TAZOB 4.5 GM 4.5 GM in DEXTROSE 5%-WATER 100 ML IVPB SCH ×3 (02:47→17:01)
[2019-02-04] MEDS: LACTATED RINGERS SOLUTION 1,000 ML IV SCH (07:53)
[2019-02-04] MEDS: PANTOPRAZOLE 20 MG TABLET (FP) PO SCH (09:09)
--- NOTE | 2019-02-04 11:24 | PN ---
Progress Note, Physician - Current Medication List Current Medications: Active Medications Acetaminophen (Tylenol -) 650 mg PO Q6H PRN PRN Reason: FEVER Last Admin: 01/30/19 06:20 Dose: 650 mg Atorvastatin Calcium (Lipitor -) 20 mg PO HS [facility] M Last Admin: 02/03/19 21:31 Dose: 20 mg Lactated Ringer's (Lactated Ringers Solution) 1,000 mls @ 75 mls/hr IV ASDIR [facility]A M Last Admin: 02/04/19 07:53 Dose: 75 mls/hr Piperacillin Sod/Tazobactam (Sod 4.5 gm/ Dextrose) 100 mls @ 200 mls/hr IVPB Q8H-IV [facility]; Protocol Last Admin: 02/04/19 09:09 Dose: 200 mls/hr Pantoprazole Sodium (Protonix -) 20 mg PO DAILY [facility] Last Admin: 02/04/19 09:09 Dose: 20 mg - Objective Vital Signs: Vital Signs Temperature 98.3 F 02/04/19 05:00 Pulse Rate 67 02/04/19 05:00 Respiratory Rate 19 02/03/19 19:56 Blood Pressure 140/66 02/04/19 05:00 O2 Sat by Pulse Oximetry (%) 96 02/03/19 21:00 Labs: CBC, BMP 02/01/19 06:10 02/01/19 06:10 INR, PTT INR 1.26 (0.83-1.09) H 01/29/19 01:38
[2019-02-04 11:45] VITALS: PULSE 72
[2019-02-04 14:20] VITALS: BP 134/61; TEMP 98.4
--- NOTE | 2019-02-04 14:36 | DS ---
Physical Examination Vital Signs: Vital Signs Temperature 98.4 F 02/04/19 14:19 Pulse Rate 72 02/04/19 14:19 Respiratory Rate 18 02/04/19 11:00 Blood Pressure 134/61 02/04/19 14:19 O2 Sat by Pulse Oximetry (%) 96 02/04/19 09:00 Findings/Remarks: Patient is a 73 y/o male with past medical history of Prostate CA s/p seed and RT in 2003, urinary retention with multiple TURPS, and HLD. Patient presented to ER with complaints of intermittent urinary retention x 3 days. Patient states he has history of developing clot which can block his urine output. His urine retention was accompanied with suprapubic pain and dysuria. In ER unable to have FC inserted. Urology consult was placed. Constitutional: Yes: No Distress, Calm Eyes: Yes: Conjunctiva Clear HENT: Yes: Atraumatic Cardiovascular: Yes: Regular Rate and Rhythm Respiratory: Yes: Regular, CTA Bilaterally Gastrointestinal: Yes: Normal Bowel Sounds, Soft Renal/: Yes: Bautista Present Musculoskeletal: Yes: WNL Extremities: Yes: WNL Edema: No Neurological: Yes: Alert, Oriented Psychiatric: Yes: Alert, Oriented Labs: CBC, BMP 02/01/19 06:10 02/01/19 06:10 Discharge Summary Reason For Visit: OBSTRUCTION OF URINARY TRACT Current Active Problems HLD (hyperlipidemia) (Acute) Sepsis (Acute) Urinary retention (Acute) Hospital Course: see progress notes Laboratory Tests 01/29/19 01/29/19 01/29/19 01:38 01:38 01:38 WBC 6.1 RBC 4.18 Hgb 12.1 Hct 36.1 MCV 86.3 MCH 29.0 MCHC 33.6 RDW 14.6 Plt Count 224 MPV 8.9 Absolute Neuts (auto) 3.6 Neutrophils % 59.3 Neutrophils % (Manual) Band Neutrophils % Lymphocytes % 27.3 D Lymphocytes % (Manual) Monocytes % 8.8 Monocytes % (Manual) Eosinophils % 3.3 D Eosinophils % (Manual) Basophils % 1.3 D Basophils % (Manual) Myelocytes % (Man) Promyelocytes % (Man) Blast Cells % (Manual) Nucleated RBC % 0 Metamyelocytes Hypochromia Platelet Estimate Polychromasia Poikilocytosis Anisocytosis Microcytosis Macrocytosis PT with INR 14.90 H INR 1.26 H PTT (Actin FS) 33.9 Sodium 137 Potassium 3.8 Chloride 106 Carbon Dioxide 28 Anion Gap 4 L BUN 13 Creatinine 0.6 Creat Clearance w eGFR 131.35 Random Glucose 92 Calcium 8.3 L Total Bilirubin AST ALT Alkaline Phosphatase Total Protein Albumin Urine Color Urine Appearance Urine pH Ur Specific [place] Urine Protein Urine Glucose (UA) Urine Ketones Urine Blood Urine Nitrite Urine Bilirubin Urine Urobilinogen Ur Leukocyte Esterase Urine WBC (Auto) Urine RBC (Auto) Urine Casts (Auto) U Epithel Cells (Auto) Urine Bacteria (Auto) 01/29/19 01/29/19 01/29/19 04:10 06:20 06:20 WBC 6.1 RBC 4.20 Hgb 12.1 Hct 36.4 MCV 86.5 MCH 28.8 MCHC 33.3 RDW 15.0 Plt Count 219 MPV 9.1 Absolute Neuts (auto) Neutrophils % Neutrophils % (Manual) Band Neutrophils % Lymphocytes % Lymphocytes % (Manual) Monocytes % Monocytes % (Manual) Eosinophils % Eosinophils % (Manual) Basophils % Basophils % (Manual) Myelocytes % (Man) Promyelocytes % (Man) Blast Cells % (Manual) Nucleated RBC % Metamyelocytes Hypochromia Platelet Estimate Polychromasia Poikilocytosis Anisocytosis Microcytosis Macrocytosis PT with INR INR PTT (Actin FS) Sodium 138 Potassium 3.6 Chloride 106 Carbon Dioxide 25 Anion Gap 7 L BUN 12 Creatinine 0.5 L Creat Clearance w eGFR 162.10 Random Glucose 75 Calcium 8.2 L Total Bilirubin AST ALT Alkaline Phosphatase Total Protein Albumin Urine Color Yellow Urine Appearance Cloudy Urine pH 7.5 Ur Specific [place] 1.016 Urine Protein Trace Urine Glucose (UA) Negative Urine Ketones Trace H Urine Blood Trace Urine Nitrite Positive H Urine Bilirubin Negative Urine Urobilinogen 1.0 Ur Leukocyte Esterase 2+ H Urine WBC (Auto) 39 Urine RBC (Auto) 10 Urine Casts (Auto) 20 U Epithel Cells (Auto) 0.5 Urine Bacteria (Auto) 5571.2 01/29/19 01/29/19 01/30/19 13:30 13:30 07:00 WBC 1.1 L* 9.4 RBC 4.31 3.61 L Hgb 12.3 10.4 L Hct 37.3 31.1 L D MCV 86.7 86.0 MCH 28.7 28.9 MCHC 33.1 33.6 RDW 14.7 15.0 Plt Count 214 140 D MPV 8.8 9.5 Absolute Neuts (auto) 8.8 H Neutrophils % 93.5 H D Neutrophils % (Manual) 80.2 Band Neutrophils % 16.8 Lymphocytes % 2.4 L D Lymphocytes % (Manual) 0.0 L Monocytes % 3.9 Monocytes % (Manual) 1 L Eosinophils % 0.0 D Eosinophils % (Manual) 0.0 Basophils % 0.2 Basophils % (Manual) 0.0 Myelocytes % (Man) 0 Promyelocytes % (Man) 0 Blast Cells % (Manual) 0 Nucleated RBC % 0 Metamyelocytes 1 Hypochromia 0 Platelet Estimate Decreased Polychromasia 0 Poikilocytosis 0 Anisocytosis 2+ Microcytosis 1+ Macrocytosis 0 PT with INR INR PTT (Actin FS) Sodium 141 Potassium 3.5 Chloride 106 Carbon Dioxide 26 Anion Gap 10 BUN 14 Creatinine 0.8 Creat Clearance w eGFR 94.24 Random Glucose 75 Calcium 8.0 L Total Bilirubin AST ALT Alkaline Phosphatase Total Protein Albumin Urine Color Urine Appearance Urine pH Ur Specific [place] Urine Protein Urine Glucose (UA) Urine Ketones Urine Blood Urine Nitrite Urine Bilirubin Urine Urobilinogen Ur Leukocyte Esterase Urine WBC (Auto) Urine RBC (Auto) Urine Casts (Auto) U Epithel Cells (Auto) Urine Bacteria (Auto) 01/30/19 01/31/19 01/31/19 07:00 08:00 08:00 WBC 12.9 H RBC 3.78 L Hgb 10.8 L Hct 32.6 L MCV 86.2 MCH 28.6 MCHC 33.2 RDW 15.3 Plt Count 137 MPV 9.3 Absolute Neuts (auto) Neutrophils % Neutrophils % (Manual) Band Neutrophils % Lymphocytes % Lymphocytes % (Manual) Monocytes % Monocytes % (Manual) Eosinophils % Eosinophils % (Manual) Basophils % Basophils % (Manual) Myelocytes % (Man) Promyelocytes % (Man) Blast Cells % (Manual) Nucleated RBC % Metamyelocytes Hypochromia Platelet Estimate Polychromasia Poikilocytosis Anisocytosis Microcytosis Macrocytosis PT with INR INR PTT (Actin FS) Sodium 136 139 Potassium 3.8 3.8 Chloride 103 107 Carbon Dioxide 26 27 Anion Gap 6 L 5 L BUN 22 H 13 Creatinine 1.0 0.8 Creat Clearance w eGFR 72.85 94.24 Random Glucose 141 H 76 Calcium 7.4 L 8.0 L Total Bilirubin 0.5 AST 28 ALT 22 Alkaline Phosphatase 66 Total Protein 5.4 L Albumin 2.4 L Urine Color Urine Appearance Urine pH Ur Specific [place] Urine Protein Urine Glucose (UA) Urine Ketones Urine Blood Urine Nitrite Urine Bilirubin Urine Urobilinogen Ur Leukocyte Esterase Urine WBC (Auto) Urine RBC (Auto) Urine Casts (Auto) U Epithel Cells (Auto) Urine Bacteria (Auto) 02/01/19 02/01/19 06:10 06:10 WBC 12.1 H RBC 3.84 L Hgb 10.9 L Hct 33.0 L MCV 85.9 MCH 28.4 MCHC 33.1 RDW 15.4 Plt Count 131 L MPV 9.7 Absolute Neuts (auto) Neutrophils % Neutrophils % (Manual) Band Neutrophils % Lymphocytes % Lymphocytes % (Manual) Monocytes % Monocytes % (Manual) Eosinophils % Eosinophils % (Manual) Basophils % Basophils % (Manual) Myelocytes % (Man) Promyelocytes % (Man) Blast Cells % (Manual) Nucleated RBC % Metamyelocytes Hypochromia Platelet Estimate Polychromasia Poikilocytosis Anisocytosis Microcytosis Macrocytosis PT with INR INR PTT (Actin FS) Sodium 142 Potassium 3.8 Chloride 109 H Carbon Dioxide 28 Anion Gap 6 L BUN 8 Creatinine 0.7 Creat Clearance w eGFR 109.94 Random Glucose 83 Calcium 7.8 L Total Bilirubin 0.8 AST 21 ALT 20 Alkaline Phosphatase 77 Total Protein 5.2 L Albumin 2.4 L Urine Color Urine Appearance Urine pH Ur Specific [place] Urine Protein Urine Glucose (UA) Urine Ketones Urine Blood Urine Nitrite Urine Bilirubin Urine Urobilinogen Ur Leukocyte Esterase Urine WBC (Auto) Urine RBC (Auto) Urine Casts (Auto) U Epithel Cells (Auto) Urine Bacteria (Auto) Active Medications Generic Name Dose Route Start Last Admin Trade Name Freq PRN Reason Stop Dose Admin Acetaminophen 650 mg 01/29/19 22:17 01/30/19 06:20 Tylenol - PO 650 mg Q6H PRN Administration FEVER Atorvastatin Calcium 20 mg 01/29/19 22:15 02/03/19 21:31 Lipitor - PO 20 mg HS ROSA M Administration Lactated Ringer's 1,000 mls @ 75 mls/hr 01/29/19 12:15 02/04/19 07:53 Lactated Ringers Solution IV 75 mls/hr ASDIR ROSA M Administration Piperacillin Sod/Tazobactam 100 mls @ 200 mls/hr 01/30/19 02:00 02/04/19 09: 09 Sod 4.5 gm/ Dextrose IVPB 200 mls/hr Q8H-IV ROSA M Administration Protocol Pantoprazole Sodium 20 mg 01/30/19 10:00 02/04/19 09:09 Protonix - PO 20 mg DAILY ROSA M Administration Microbiology 02/01/19 06:10 Blood - Peripheral Venous Blood Culture - Preliminary NO GROWTH OBTAINED AFTER 72 HOURS, INCUBATION TO CONTINUE FOR 2 DAYS. 02/01/19 06:10 Blood - Peripheral Venous Blood Culture - Preliminary NO GROWTH OBTAINED AFTER 72 HOURS, INCUBATION TO CONTINUE FOR 2 DAYS. 01/29/19 01:40 Blood - Peripheral Venous Blood Culture - Final NO GROWTH AFTER 5 DAYS INCUBATION 01/29/19 01:38 Blood - Peripheral Venous Blood Culture - Final NO GROWTH AFTER 5 DAYS INCUBATION 01/29/19 13:30 Blood - Peripheral Venous Blood Culture - Final Gemella Morbillorum 01/29/19 04:10 Urine - Urine Clean Catch Urine Culture - Final Escherichia Coli Condition: Stable - Instructions Diet, Activity, Other Instructions: Follow up with Dr Huang in 48hrs Follow up with Dr Ruano Bautista catheter care [facility] and [place] care on discharge continue with current med regimen return to ER if AMS, chest pain, respiratory distress Referrals: Mel Huang MD [Primary Care Provider] - Casper Ruano MD [Staff Physician] - Disposition: [facility]/HOME HEALTH CARE - Home Medications Comprehensive Discharge Medication List: Ambulatory Orders Atorvastatin Ca [Lipitor] 20 mg NR DAILY #0 tab 09/09/17 Omeprazole 20 mg PO DAILY #0 cap 09/09/17 Acetaminophen [Tylenol .Regular Strength -] 650 mg PO Q6H PRN tablet 02/03/19 Ertapenem Sodium - 1 Gram [Invanz (Pre-Docked)] 1 gm IVPB DAILY #5 bag 02/03/19
== END 2019-02-04 18:08 | disposition home health service (06) | DRG 698 ==
LOC: JER 20:56 → JERBED 01-29 01:24 → JASUSAT 01-29 01:24 → UNDOADMIN 01-29 01:24 → JASUSAT 01-29 12:19 → JSAMEDAYSX 01-29 12:28 → J6S 01-29 17:01 → JASUSAT 01-29 17:02 → J6S 01-29 17:02
PROVIDERS: ADMIT Family Medicine; ATTEND Family Medicine
PROC: 0T9B80Z Drainage of Bladder with Drainage Device, Via Natural or Artificial Opening Endoscopic (ICD-10-PCS; 2019-01-29)
PROC: 0T7D8ZZ Dilation of Urethra, Via Natural or Artificial Opening Endoscopic (ICD-10-PCS; principal; 2019-01-29 14:30)
PROC: 02HV33Z Insertion of Infusion Device into Superior Vena Cava, Percutaneous Approach (ICD-10-PCS; 2019-02-04)
PROC: B548ZZA Ultrasonography of Superior Vena Cava, Guidance (ICD-10-PCS; 2019-02-04)
DX: N13.9 Obstructive and reflux uropathy, unspecified (principal); A41.9 Sepsis, unspecified organism; T81.40XA Infection following a procedure, unspecified, initial encounter; T81.44XA Sepsis following a procedure, initial encounter; N35.819 Other urethral stricture, male, unspecified site; N39.0 Urinary tract infection, site not specified; R33.8 Other retention of urine; C61 Malignant neoplasm of prostate; Z88.0 Allergy status to penicillin; E78.5 Hyperlipidemia, unspecified; Y83.8 Other surgical procedures as the cause of abnormal reaction of the patient, or of later complication, without mention of misadventure at the time of the procedure; R31.9 Hematuria, unspecified; B96.20 Unspecified Escherichia coli [E. coli] as the cause of diseases classified elsewhere
CPT/HCPCS: 36415; 36569; 71046-TC-FY; 77001-TC-FY; 80048; 80053; 81003; 85025; 85027; 85610; 85730; 87040; 87086; 87186; 93005; 93010; 94760; 97116-GP; 97161-GP; 99283-25; C1751; J0131

== ENCOUNTER 2019-05-27 06:18 | Emergency (ER) | payer OTHER ==
[2019-05-27 06:31] VITALS: TEMP 99; BMI 24.3
[2019-05-27] MEDS ORDERED: SODIUM CHLORIDE 1,000 ML IV ONE (06:41)
--- NOTE | 2019-05-27 06:50 | PDOC ---
History of Present Illness - General Chief Complaint: Pain, Acute Stated Complaint: LLQ PAIN X 2 DAYS, VOMITING,DIARRHEA Time Seen by Provider: 05/27/19 06:35 History Source: Patient Exam Limitations: No Limitations - History of Present Illness Initial Comments: 05/27/19 06:50 This is a 73-year-old male who comes in complaining of left lower quadrant abdominal pain patient said pain is intermittent. At the time I saw him he was having no pain. However approximately 15 minutes earlier he told the nurse he had 9 out of 10 pain. Patient also has had, vomiting and diarrhea times the past 2 days. Patient says he is otherwise healthy. Allergies: as per nursing notes Past Medical History: none Social history: Lives with family. No smoking. No alcohol. No illicit drugs. Surgical history: None General: No fevers or chills, no weakness, no weight loss HEENT: No change in vision. No sore throat,. No ear pain CardioVascular: no chest discomfort. No shortness of breath Respiratory:No cough, or wheezing. Gastrointestinal: + nausea, +vomiting, +diarrhea no constipation, No rectal bleeding, +llq abd. pain Genitourinary: No dysuria, hematuria, or frequency Musculoskeletal: No joint or muscle pain or swelling Neurologic: No headache, vertigo, dizziness or loss of consciousness Psychiatric: nor depression Skin: No rashes or easy bruising Endocrine: no increased thirst or abnormal weight change Allergic: no skin or latex allergy All other systems reviewed and normal Exam: General: Well-nourished well-developed individual, no acute distress HEENT: Throat: Normal, tonsils normal, no erythema or exudate Neck: Supple, no meningeal signs, no lymphadenopathy Eyes::Pupils equal reactive and round, extraocular motion intact Chest: Nontender to palpation Cardiac: S1-S2 normal, regular rate and rhythm, no murmurs rubs or gallops Respiratory: Lungs clear to auscultation bilateral Abdomen: Soft, nondistended, normal bowel sounds, there is no tenderness on palpation diffusely Extremities: Warm, dry, no cyanosis, clubbing, or edema Skin: No rashes Neuro: Alert and oriented x3, CN II - XII intact, nonfocal exam with normal strength, normal sensation, normal reflexes, normal gait, Psych: Normal mood and affect. Assessment and plan: This is a 73-year-old male with nausea vomiting and diarrhea 2 days. Patient is also had associated intermittent abdominal pain. Workup initiated including CBC, comp, lipase. Patient given fluids. Care of this patient transferred to Dr. Diaz at 7am Case discussed in detail with oncoming Emergency Physician including history, physical exam and ancillary studies. Oncoming Emergency Physician has assumed care for the patient and will complete the evaluation and treatment. Patient is aware of the plan. Pt is clinically unchanged and stable. Past History - Past Medical History Allergies/Adverse Reactions: Allergies Allergy/AdvReac Type Severity Reaction Status Date / Time Penicillins Allergy Unknown Verified 03/30/18 18:08 Home Medications: Ambulatory Orders Omeprazole 20 mg PO DAILY #0 cap 09/09/17 Anemia: No Asthma: No Cancer: Yes (PROSTATE) Cardiac Disorders: No CVA: No COPD: No CHF: No DVT: No Dementia: No Diabetes: No GI Disorders: No Disorders: Yes (prostate) HTN: No Hypercholesterolemia: Yes Liver Disease: No Seizures: No Thyroid Disease: No - Surgical History Abdominal Surgery: No Appendectomy: No Cardiac Surgery: No Cholecystectomy: No Lung Surgery: No Neurologic Surgery: No Orthopedic Surgery: No - Immunization History Immunization Up to Date: Yes - Suicide/Smoking/Psychosocial Hx Smoking Status: No Smoking History: Never smoked Have you smoked in the past 12 months: No Number of Cigarettes Smoked Daily: 0 Information on smoking cessation initiated: No Hx Alcohol Use: Yes (SOCIAL) Drug/Substance Use Hx: No Substance Use Type: None Hx Substance Use Treatment: No Abd/GI Specific PMHX - Complaint Specific PMHX GERD: No GI Ulcer Disease: No *Physical Exam - Vital Signs Last Vital Signs Temp Pulse Resp BP Pulse Ox 99 F 82 18 148/52 L 100 05/27/19 06:27 05/27/19 06:27 05/27/19 06:27 05/27/19 06:27 05/27/19 06:27 *DC/Admit/Observation/Transfer Diagnosis at time of Disposition: Abdominal pain Qualifiers: Abdominal location: left lower quadrant Qualified Code(s): R10.32 - Left lower quadrant pain Nausea & vomiting Qualifiers: Vomiting type: unspecified Vomiting Intractability: non-intractable Qualified Code(s): R11.2 - Nausea with vomiting, unspecified Diarrhea Qualifiers: Diarrhea type: unspecified type Qualified Code(s): R19.7 - Diarrhea, unspecified - Discharge Dispostion Condition at time of disposition: Stable - Referrals Referrals: Mel Huang MD [Primary Care Provider] - - Patient Instructions - Post Discharge Activity
[2019-05-27 08:22] LABS: BASO % 0.1 % (0-2.0); EOS % 0.5 % (0-4.5); HEMATOCRIT 34.2 % (35.4-49); HEMOGLOBIN 11.7 GM/dl (11.7-16.9); LYMPH % 9.5 % (8-40); MCH 30.4 pg (25.7-33.7); MCHC 34.1 g/dl (32.0-35.9); MEAN CELL VOLUME 89.1 fl (80-96); MONO % 9.2 % (3.8-10.2); NEUT % 80.7 % (42.8-82.8); PLATELET COUNT 156 K/MM3 (134-434); RBC 3.84 M/mm3 (4.00-5.60); RDW 14.1 % (11.9-15.9); WHITE BLOOD COUNT 8.7 K/mm3 (4.0-10.8)
[2019-05-27 09:14] LABS: ALBUMIN 3.6 g/dl (3.4-5.0); BILIRUBIN,TOTAL 0.8 mg/dl (0.2-1); CALCIUM 8.4 mg/dl (8.5-10); CREATININE 0.7 mg/dl (0.55-1.3); POTASSIUM 3.2 mmol/L (3.5-5.1); TOT PROT 6.3 g/dl (6.4-8.2)
[2019-05-27 09:57] VITALS: BP 125/82; PULSE 87
--- NOTE | 2019-05-27 09:59 | PDOC ---
*Physical Exam - Vital Signs Last Vital Signs Temp Pulse Resp BP Pulse Ox 99 F 82 18 148/52 L 100 05/27/19 06:27 05/27/19 06:27 05/27/19 06:27 05/27/19 06:27 05/27/19 06:27 ED Treatment Course - LABORATORY CBC & Chemistry Diagram: 05/27/19 06:55 05/27/19 06:55 - ADDITIONAL ORDERS Additional order review: Laboratory Results 05/27/19 05/27/19 05/27/19 08:33 07:25 06:55 Sodium 135 L Potassium 3.2 L Chloride 104 Carbon Dioxide 24 Anion Gap 7 L BUN 16.0 Creatinine 0.7 Est GFR (CKD-EPI)AfAm 106.99 Est GFR (CKD-EPI)NonAf 92.31 Random Glucose 143 H Calcium 8.4 L Total Bilirubin 0.8 AST 18 ALT 16 Alkaline Phosphatase 63 Total Protein 6.3 L Albumin 3.6 Lipase 113 Urine Color Yellow Urine Appearance Clear Urine pH 5.5 Urine Protein Negative Urine Glucose (UA) Negative Urine Ketones Negative Urine Blood Trace-intact Urine Nitrite Negative Urine Bilirubin Negative Urine Urobilinogen 0.2 Ur Leukocyte Esterase Negative 05/27/19 06:55 RBC 3.84 L MCV 89.1 MCHC 34.1 RDW 14.1 MPV 10.0 Neutrophils % 80.7 Lymphocytes % 9.5 Monocytes % 9.2 Eosinophils % 0.5 Basophils % 0.1 - Medications Given in the ED: ED Medications Discontinued Medications Generic Name Dose Route Start Last Admin Trade Name Freq PRN Reason Stop Dose Admin Sodium Chloride 1,000 mls @ 1,000 mls/hr 05/27/19 06:41 05/27/19 06:54 Normal Saline - IV 05/27/19 07:40 1,000 mls/hr .Q1H ONE Administration Medical Decision Making - Medical Decision Making Care received at 0700 Pt presented to the ED with LLQ pain that resolved by the time he was seen by Dr. Azul On my initial evaluation, pt with no abd ttp, no pain states sxs have resolved Labs/UA pending Labs with mild hypoK, pt instructed to eat bananas, avocado's and other potassium rich foods. No leukocytosis UA neg for infection Serial abd exams benign, pt asymptomatic during entire ED stay. Possible colitis vs enteritis as pain followed episode of non bloody diarrhea. Pt has appt with his GI Dr. Bonds tomorrow for an endoscopy Strict return precautions discussed with patient including immediate return to ED if any pain recurs Pt expresses understanding He is clinically stable for DC home I discussed the physical exam findings, ancillary test results and final diagnoses with the patient. I answered all of the patient's questions. The patient was satisfied with the care received and felt comfortable with the discharge plan and treatment plan. The patient will call their primary care physician within 24 hours to arrange follow-up and will return to the Emergency Department with any new, persistent or worsening symptoms. *DC/Admit/Observation/Transfer Diagnosis at time of Disposition: Abdominal pain Qualifiers: Abdominal location: left lower quadrant Qualified Code(s): R10.32 - Left lower quadrant pain Nausea & vomiting Qualifiers: Vomiting type: unspecified Vomiting Intractability: non-intractable Qualified Code(s): R11.2 - Nausea with vomiting, unspecified Diarrhea Qualifiers: Diarrhea type: unspecified type Qualified Code(s): R19.7 - Diarrhea, unspecified - Discharge Dispostion Disposition: HOME Condition at time of disposition: Stable - Referrals Referrals: Mel Huang MD [Primary Care Provider] - - Patient Instructions Printed Discharge Instructions: DI for Abdominal Pain-Adult Additional Instructions: Follow up with Dr. Bonds tomorrow as scheduled Return to the emergency department as discussed if you have any new, worsening, or concerning symptoms such as returning pain. Feel better! Print Language: MACEDONIAN - Post Discharge Activity - Attestations Physician Attestion: 05/27/19 09:59 I, Dr. Radha Yang MD, attest that this document has been prepared under my direction and personally reviewed by me in its entirety. I further attest, that it accurately reflects all work, treatment, procedures and medical decision -making performed by me.
[2019-05-27 10:16] LABS: URINE SPERM TRACE
== END 2019-05-27 10:19 | disposition home or self-care (01) ==
LOC: FER 06:18
PROC: 3E0337Z Introduction of Electrolytic and Water Balance Substance into Peripheral Vein, Percutaneous Approach (ICD-10-PCS; principal; 2019-05-27)
DX: R11.2 Nausea with vomiting, unspecified (principal); R10.32 Left lower quadrant pain; R19.7 Diarrhea, unspecified; Z85.46 Personal history of malignant neoplasm of prostate; E78.00 Pure hypercholesterolemia, unspecified
CPT/HCPCS: 36415; 80053; 81003; 81015; 83690; 85025; 87086; 87186; 99282-25; J7030

== ENCOUNTER → 2023-06-06 | Day surgery (SDC) | payer OTHER | END | disposition home or self-care (01) | LOC: JRADIR 09:13 | PROVIDERS: ATTEND Internal Medicine Endocrinology, Diabetes & Metabolism | PROC: 0G9G3ZX Drainage of Left Thyroid Gland Lobe, Percutaneous Approach, Diagnostic (ICD-10-PCS; principal; 2023-06-06) | DX: E04.1 Nontoxic single thyroid nodule (principal) | CPT/HCPCS: 10005; 76942; 88173; 88305-TC ==

== ENCOUNTER 2023-10-20 10:00 | Emergency (ER) | payer OTHER ==
[2023-10-20 10:19] VITALS: BP 128/64; PULSE 94; RESP 18; TEMP 99.5; BMI 24.3
== END 2023-10-20 12:26 | disposition home or self-care (01) ==
LOC: FER 10:00
DX: R50.9 Fever, unspecified (principal); R09.81 Nasal congestion; R51.9 Headache, unspecified; R05.9 Cough, unspecified; M79.10 Myalgia, unspecified site; J06.9 Acute upper respiratory infection, unspecified; Z20.822 Contact with and (suspected) exposure to COVID-19
CPT/HCPCS: 0241U-QW; 99283-25

== ENCOUNTER 2024-07-09 07:04 | Emergency (ER) | payer OTHER ==
[2024-07-09] MEDS ORDERED: ACETAMINOPHEN INJECTION 100 ML ONE (07:19)
[2024-07-09] MEDS: SODIUM CHLORIDE 1,000 ML IV STA (07:28)
[2024-07-09] MEDS: ACETAMINOPHEN 1000 MG/100 ML BAG IVPB ONE (07:29)
[2024-07-09 07:30] VITALS: BMI 23.6
[2024-07-09 08:24] LABS: HEMATOCRIT 36.6 % (35.4-49); HEMOGLOBIN 11.6 G/dL (11.7-16.9); MCH 28.1 pg (25.7-33.7); MCHC 31.7 g/dl (32.0-35.9); MEAN CELL VOLUME 88.5 fl (80-96); MEAN PLT VOLUME 8.8 fl (7.5-11.1); PLATELET COUNT 384.2 10^3/uL (134-434); RBC 4.13 10^6/uL (4.00-5.60); RDW 14.3 % (11.9-15.9); WHITE BLOOD COUNT 10.9 10^3/uL (4.0-10.8)
[2024-07-09 08:27] LABS: INR 1.25 (0.83-1.09); PROTHROMBIN TIME (PATIENT) 14.2 SEC (9.7-13.0)
[2024-07-09 08:29] LABS: ACTIVATED PTT 32.4 SECONDS (25.2-36.5)
[2024-07-09 08:53] LABS: ALBUMIN 3.7 g/dl (3.4-5.0); ALK PHOS 77 U/L (45-117); ANION GAP 10 mmol/L (4-13); BILIRUBIN,TOTAL 0.5 mg/dl (0.2-1); CALCIUM 8.9 mg/dl (8.5-10.1); CHLORIDE 102 mmol/L (98-107); CO2 28 mmol/L (21-32); GLUCOSE,RANDOM 210 mg/dl (74-106); POTASSIUM 3.6 mmol/L (3.5-5.1); SGOT/AST 14 U/L (15-37); SGPT/ALT 12 U/L (7-52); SODIUM 140 mmol/L (136-145); TOT PROT 6.3 g/dl (6.4-8.2)
[2024-07-09 08:59] LABS: PLATELET ESTIMATE ADEQUATE
[2024-07-09] MEDS ORDERED: cefTRIAXone SODIUM 1 GM VIAL ONE (09:33)
[2024-07-09] MEDS: CEFTRIAXONE 1,000 MG in DEXTROSE 5%-WATER - 50 ML IVPB ONE (09:33)
[2024-07-09 12:14] VITALS: BP 173/59; PULSE 75; RESP 16; TEMP 99.3
[2024-07-09] MEDS ORDERED: ACETAMINOPHEN 325 MG TABLET (FP) ONE (13:12)
[2024-07-09] MEDS: ACETAMINOPHEN 325 MG TABLET (FP) PO ONE (13:18)
== END 2024-07-09 13:48 | disposition home or self-care (01) ==
LOC: FER 07:04
PROC: 3E03329 Introduction of Other Anti-infective into Peripheral Vein, Percutaneous Approach (ICD-10-PCS; principal; 2024-07-09)
PROC: 3E033NZ Introduction of Analgesics, Hypnotics, Sedatives into Peripheral Vein, Percutaneous Approach (ICD-10-PCS; 2024-07-09)
PROC: 3E0337Z Introduction of Electrolytic and Water Balance Substance into Peripheral Vein, Percutaneous Approach (ICD-10-PCS; 2024-07-09)
DX: N39.0 Urinary tract infection, site not specified (principal); R30.0 Dysuria; R50.9 Fever, unspecified; Z20.822 Contact with and (suspected) exposure to COVID-19
CPT/HCPCS: 0241U-QW; 36415; 74176-TC; 80053; 81003; 81015; 85025; 85610; 85730; 87086; 87186; 99284-25; J0131